=== PATIENT | female | born 1970 | race Two or more races ===

== ENCOUNTER 2025-04-18 16:36 | Emergency (ER) | payer OTHER ==
[~2025-04-18] VITALS: Ht 162.6 cm; Wt 62.9 kg
--- NOTE | 2025-04-18 17:15 | ED.PDOC ---
General HPI Comments This is a 54 year old female presenting to the ED with chief complaint of flank pain. Patient reports that she has been experiencing 10/10 left sided flank pain since yesterday. Patient relays that she has history of kidney stones with her last episode a few months ago. Patient denies any fever, chills, dysuria, hematuria, abdominal pain, or N/V/D. Chief Complaint: Flank Pain Time Seen by MD: 17:13 Reviewed notes: Nurses Notes, Medications, Allergies Allergies: Coded Allergies: NO KNOWN ALLERGIES (Unverified , 04/18/25) Home Meds Active Scripts Tramadol HCl (Tramadol HCl) 50 Mg Tab, 50 MG PO Q12HP PRN for 6 Days, #12 TAB Prov:KAPIL ROTH MD 04/18/25 Information Source: Patient Mode of Arrival: Ambulatory Severity: Moderate Timing: Days Duration: Since onset Prehospital treatment: None Onset: Spontaneous History of: UTI, Kidney stone Location: (L)Flank associated signs and symptoms: Flank Pain Past Medical History PAST MEDICAL HISTORY: Kidney Stones, UTI'S Surgical History: Tonsillectomy KITCHEN CLERK History: Denies all KITCHEN CLERK Hx Family History Family History: Reviewed,noncontributory to illness Social History Smoker: Non-Smoker Alcohol: Denies ETOH Use Drugs: Denies Drug Use Lives In: Home Constitutional: denies: chills, diaphoresis, fatigue, fever, malaise, sweats, weakness, others EENTM: denies: blurred vision, double vision, ear bleeding, ear discharge, ear drainage, ear pain, ear ringing, eye pain, eye redness, hearing loss, mouth pain, mouth swelling, nasal discharge, nose bleeding, nose congestion, nose pain, photophobia, tearing, throat pain, throat swelling, voice changes, others Respiratory: denies: cough, hemoptysis, orthopnea, SOB at rest, shortness of breath, SOB with excertion, stridor, wheezing, others Cardiovascular: denies: chest pain, dizzy spells, diaphoresis, Dyspnea on exertion, edema, irregular heart beat, left arm pain, lightheadedness, palpitations, PND, syncope, others Gastrointestinal: denies: abdomen distended, abdominal pain, blood streaked bowels, constipated, diarrhea, dysphagia, difficulty swallowing, hematemesis, melena, nausea, poor appetite, poor fluid intake, rectal bleeding, rectal pain, vomiting, others Genitourinary: reports: flank pain; denies: abnormal vagina bleeding, burning, dyspareunia, dysuria, frequency, hematuria, incontinence, pain, , vagina discharge, urgency, others Neurological: denies: dizziness, fainting, headache, left sided numbness, left sided weakness, numbness, paresthesia, pre-existing deficit, right sided numbness, right sided weakness, seizure, speech problems, tingling, tremors, weakness, others Musculoskeletal: denies: back pain, gout, joint pain, joint swelling, muscle pain, muscle stiffness, neck pain, others Integumetry: denies: bruises, change in color, change in hair/nails, dryness, laceration, lesions, lumps, rash, wounds, others Allergic/Immunocompromised: denies: Difficulty Healing, Frequent Infections, Hives, Itching, others Hematologic/Lymphatic: denies: anemia, blood clots, easy bleeding, easy bruising, swollen glands, others Endocrine: denies: excessive hunger, excessive sweating, excessive thirst, excessive urination, flushing, intolerance to cold, intolerance to heat, u nexplained weight gain, unexplained weight loss, others Psychiatric: denies: anxiety, bipolar disorder, depression, hopeless, panic disorder, schizophrenia, sleepless, suicidal, others All Other Systems: Reviewed and Negative Physical Exam General Appearance: Mild Distress HEENT: Normal ENT Inspection, Pharynx Normal, TMs Normal Neck: Full Range of Motion, Non-Tender, Normal, Normal Inspection Respiratory: Chest Non-Tender, Lungs Clear, No Accessory Muscle Use, No Respiratory Distress, Normal Breath Sounds Cardiovascular: No Edema, No JVD, No Murmur, No Gallop, Normal Peripheral Pulses, Regular Rate/Rhythm Breast Exam: Deferred Gastrointestinal: No Organomegaly, Non Tender, No Pulsatile Mass, Normal Bowel Sounds, Soft Genitalia: Deferred Pelvic: Deferred Rectal: Deferred Extremities: No calf tenderness, Normal capillary refill, Normal inspection, Normal range of motion, Non-tender, No pedal edema Musculoskeletal : Location: Left Extremity Location: Back Apperance: Tenderness: Mild Neurologic: Alert, almond huller II-XII nml as Tested, No Motor Deficits, Normal Affect, Normal Mood, No Sensory Deficits Cerebellar Function: Normal Reflexes: Normal Skin: Dry, Normal Color, Warm Lymphatic: No Adenopathy Was a procedure done? Was a procedure done?: No Differential Diagnosis Kidney stone (Female): Pyelonephritis, Urolithiasis Urinary Problem (Female): UTI X-Ray, Labs, Meds, VS Vital Signs Date Time Temp Pulse Resp B/P (MAP) Pulse Ox O2 Delivery O2 Flow Rate FiO2 04/18/25 18:03 107 16 100 Room Air 04/18/25 18:03 98.3 107 16 155/93 (113) 100 98.3 04/18/25 16:38 97.5 107 18 159/99 99 97.5 Lab Test 04/18/25 17:12 04/18/25 17:03 Range/Units White Blood Count 8.9 4.4-10.8 10^3/uL Red Blood Count 4.21 4.0-5.20 10^6/uL Hemoglobin 12.7 12.2-16.2 g/dL Hematocrit 37.7 36.0-46.0 % Mean Corpuscular Volume 89.5 80.0-100.0 fL Mean Corpuscular Hemoglobin 30.2 28.0-32.0 pg Mean Corpuscular Hemoglobin Concent 33.7 32.0-36.0 g/dL Red Cell Distribution Width 14.3 11.8-14.3 % Platelet Count 527 H 140-450 10^3/uL Mean Platelet Volume 6.7 L 6.9-10.8 fL Neutrophils (%) (Auto) 53.3 37.0-80.0 % Lymphocytes (%) (Auto) 35.9 10.0-50.0 % Monocytes (%) (Auto) 9.2 0.0-12.0 % Eosinophils (%) (Auto) 0.8 0.0-7.0 % Basophils (%) (Auto) 0.8 0.0-2.0 % Neutrophils # (Auto) 4.7 1.6-8.6 10 ^3/uL Lymphocytes # (Auto) 3.2 0.4-5.4 10 ^3/uL Monocytes # (Auto) 0.8 0-1.3 10 ^3/uL Eosinophils # (Auto) 0.1 0-0.8 10 ^3/uL Basophils # (Auto) 0.1 0-0.2 10 ^3/uL Nucleated Red Blood Cells 0.1 % Sodium Level 144 136-145 mmol/L Potassium Level 3.8 3.5-5.1 mmol/L Chloride Level 106 98-107 mmol/L Carbon Dioxide Level 29 20-31 mmol/L Anion Gap 9 5-15 Blood Urea Nitrogen 12 9-23 mg/dL Creatinine 0.99 0.550-1.02 mg/dL Glomerular Filtration Rate Calc 68 >90 mL/min BUN/Creatinine Ratio 12.1 10.0-20.0 Serum Glucose 101 74-106 mg/dL Calcium Level 10.0 8.7-10.4 mg/dL Urine Color Dark-brown Yellow Urine Clarity Turbid H Clear Urine pH 5.5 5.0-9.0 Urine Specific [place] 1.030 1.001-1.035 Urine Protein Trace H Negative Urine Ketones Negative Negative Urine Blood 2+ H Negative /uL Urine Nitrite 1+ H Negative Urine Bilirubin Negative Negative Urine Urobilinogen 3 H Negative mg/dL Urine Leukocyte Esterase Negative Negative /uL Urine RBC 236 0 - 4 /hpf Urine Microscopic WBC 5 0-5 /HPF Urine Squamous Epithelial Cells Few <5 /hpf Urine Bacteria None seen None Seen /hpf Urine Hyaline Casts Few 0 - 2 /lpf Urine Mucus Few None Seen Urine Glucose Normal Normal mg/dL Current Medications Medications (Trade) Dose Ordered Sig/Padmini Route Start Time Stop Time Status Last Admin Ondansetron HCl (Zofran) 4 mg ONCE ONCE IV 04/18/25 17:15 04/18/25 17:16 DC 04/18/25 18:35 Sodium Chloride 1,000 ml @ 1,000 mls/hr Q1H ONCE IVB 04/18/25 17:15 04/18/25 18:14 DC 04/18/25 18:35 Ketorolac Tromethamine (Toradol Injection) 30 mg ONCE ONCE IV 04/18/25 17:15 04/18/25 17:16 DC 04/18/25 18:36 CT Abd/Pel indicates: 1. [id number] left hydronephrosis with 2 adjacent obstructing calculi in the proximal left ureter. 2. Additional small nonobstructing bilateral renal calculi. 3. Lobulated cyst in the inferior right hepatic lobe. Additional small subcentimeter low-attenuation lesions in the liver, likely small cysts, but too small to characterize. 4. Additional findings as described above. IV Hep-Lock was established The patient was given a 1 L bolus of normal saline The patient was given ketorolac 30 mg IV push The patient has a CBC which is within normal limits The chemistry panel is within normal limits The urine test is negative for any infection Images Reviewed?: Images reviewed and evaluated by me Time of 1ST Reevaluation: 20:13 Reevaluation 1ST: Unchanged Patient Education/Counseling: Diagnosis, Treatment, Prognosis, Need For Follow Up Family Education/Counseling: No Family Present SEPSIS Sepsis Screen Date sepsis recognized/suspect: Apr 18, 2025 Time Sepsis recognized/suspect: 1641 Recent Procedure: No On Antibiotic Therapy: No Respiratory Rate >20: No Heart Rate >90: Yes Temp<36 C (96.8 F) or >38.3 C: No SBP <90 or MAP <65 mmHG: No New Acute Mental Status Change: No Is the patient on CPAP, BIPAP,: No Physician Orders Ct Ab Pel Wo Con-No Oral Or Iv (04/18/25 17:05) Heplock Iv (04/18/25 17:05) Vital Signs Date Time Temp Pulse Resp B/P (MAP) Pulse Ox O2 Delivery O2 Flow Rate FiO2 04/18/25 18:03 107 16 100 Room Air 04/18/25 18:03 98.3 107 16 155/93 (113) 100 98.3 04/18/25 16:38 97.5 107 18 159/99 99 97.5 Laboratory Tests Test 04/18/25 17:12 White Blood Count 8.9 10^3/uL (4.4-10.8) Medications Medications Dose Ordered Sig/Padmini Route Start Time Stop Time Status Last Admin Dose Admin Ketorolac Tromethamine 30 mg ONCE ONCE IV 04/18/25 17:15 04/18/25 17:16 DC 04/18/25 18:36 Ondansetron HCl 4 mg ONCE ONCE IV 04/18/25 17:15 04/18/25 17:16 DC 04/18/25 18:35 Sodium Chloride 1,000 ml @ 1,000 mls/hr Q1H ONCE IVB 04/18/25 17:15 04/18/25 18:14 DC 04/18/25 18:35 Departure 1 Departure Time of Disposition: 20:13 Impression: Primary Impression: Ureterolithiasis Disposition: HOME / SELF CARE / HOMELESS Condition: Fair e-Prescriptions Tramadol HCl (Tramadol HCl) 50 Mg Tab 50 MG PO Q12HP PRN for 6 Days, #12 TAB Prov: KAPIL ROTH MD 04/18/25 Discharged With: Self Critical Care Note Critical Care Time?: No Stability Stability form required: No Heart Score Heart Score: Heart Score Response (Comments) Value History N/A 0 EKG N/A 0 Age N/A 0 Risk Factors N/A 0 Troponin N/A 0 Total 0 I personally scribed for KAPIL ROTH MD ([email or web address]) on 04/18/25 at 17:15. Electronically submitted by Stephan Owens ([email or web address]). I personally scribed for KAPIL ROTH MD ([email or web address]) on 04/18/25 at 18:32. Electronically submitted by Stephan Owens ([email or web address]). KAPIL ROTH MD Apr 18, 2025 17:15
[2025-04-18 17:28] LABS: Hematocrit 37.7 % (36.0-46.0); Hemoglobin 12.7 g/dL (12.2-16.2); Mean Corpuscular Hemoglobin 30.2 pg (28.0-32.0); Mean Corpuscular Volume 89.5 fL (80.0-100.0); Nucleated Red Blood Cells % 0.1 %
[2025-04-18 17:32] LABS: Chloride 106 mmol/L (98-107); Potassium 3.8 mmol/L (3.5-5.1); Sodium 144 mmol/L (136-145)
[2025-04-18 17:33] LABS: Anion Gap 9 (5-15); Calcium 10.0 mg/dL (8.7-10.4); Carbon Dioxide 29 mmol/L (20-31)
[2025-04-18 17:38] LABS: BUN/Creatinine Ratio 12.1 (10.0-20.0); Blood Urea Nitrogen 12 mg/dL (9-23); Glucose 101 mg/dL (74-106)
[2025-04-18 18:04] LABS: Urine Protein, UAD TRACE (Negative)
--- NOTE | 2025-04-18 18:05 | DVH ---
CLINICAL INFORMATION: 54 years old, Female; left flank pain. TECHNIQUE: Axial CT images of the abdomen and pelvis were obtained without IV contrast. Coronal and s agittal reformatted images were obtained, reviewed, and stored. Evaluation of the parenchymal organs is limited without IV contrast. Evaluation of the bowel and mesentery is limited without oral contras t. All CT scans at this medical facility are performed using dose modulation techniques as appropriat e to a performed exam including the following: Automated exposure control was utilized; adjustment of the MA and/or KV according to patient size; and use of iterative reconstruction technique. CTDIvol = 7.16 mGy DLP = 371.6 mGy-cm COMPARISON: US PELVIC on DOS: 05/27/23, US TRANSVAGINAL US NON OB on DOS: 05/26/23 FINDINGS: Lung bases: Lung bases are clear. Liver: Lobulated fluid density structure in the inferior aspect of the right hepatic lobe measuring u p to 4.1 cm, likely cyst. Additional scattered, small subcentimeter low-attenuation lesions are seen in the liver, likely small cysts, but too small to characterize. Biliary: No calcified gallstones or biliary ductal dilatation. Spleen: Unremarkable. Pancreas: Grossly unremarkable in its noncontrast enhanced appearance. Adrenal glands: Unremarkable. No mass. Kidneys: [id number] left hydronephrosis. There are 2 adjacent calculi in the proximal left uret er measuring 3 mm and 4 mm, respectively additional small nonobstructing bilateral renal calculi are seen. Aorta/Vascular: Mild atherosclerotic calcification. No abdominal aortic aneurysm. Lymph nodes: No mass or lymphadenopathy. Bowel/mesentery: No small bowel obstruction. No free air or free fluid. Appendix is visualized and ap pears unremarkable. Moderate stool in the colon. Pelvic organs: Grossly unremarkable. Bladder: Unremarkable. No mass. Abdominal wall: No mass or hernia. Bones: No acute fracture or suspicious intraosseous lesion. IMPRESSION: 1. [id number] left hydronephrosis with 2 adjacent obstructing calculi in the proximal left uret er. 2. Additional small nonobstructing bilateral renal calculi. 3. Lobulated cyst in the inferior right hepatic lobe. Additional small subcentimeter low-attenuation lesions in the liver, likely small cysts, but too small to characterize. 4. Additional findings as described above.
[2025-04-18] MEDS: ONDANSETRON HCL 4 MG/2 ML VIAL IV ONE (18:35)
[2025-04-18] MEDS: SODIUM CHLORIDE 0.9% 1,000 ML IVB ONE (18:35)
[2025-04-18] MEDS: KETOROLAC TROMETH 30 MG/ML 1ML VIAL IV ONE (18:36)
[2025-04-18] MEDS ORDERED: TRAM-626 PO (20:10)
[2025-04-18 20:24] VITALS: BP 168/96; PULSE 94; RESP 17; TEMP 98.1; O2SAT 99
== END 2025-04-18 20:27 | disposition home or self-care (01) ==
LOC: ER 16:39
DX: N13.2 Hydronephrosis with renal and ureteral calculous obstruction (principal); Z90.89 Acquired absence of other organs; Z79.899 Other long term (current) drug therapy
CPT/HCPCS: 36415; 74176; 80048; 81001; 85025; 96361; 96374; 96375; 99285; J1885; J2405; J7030

== ENCOUNTER 2025-04-21 08:30 | Inpatient (IN) | payer OTHER ==
[~2025-04-21] VITALS: Ht 162.6 cm; Wt 98.7 kg
[~2025-04-21 08:30] MED LIST: TRAM-626 PO
--- NOTE | 2025-04-21 09:13 | ED.PDOC ---
General HPI Comments A 54 YEAR OLD FEMALE PRESENTS TO THE ED WITH COMPLAINT OF FLANK PAIN. PT STATES SHE WAS AT [facility] 2X DAYS PRIOR FOR L SIDED FLANK PAIN AND WAS DX WITH OBSTRUCTING L SIDED KIDNEY STONE AND GIVEN PAIN PEDS AND DISCHARGED. PT STATES SINCE, SHE HAS BEEN HAVING INCREASING L SIDED FLANK PAIN RADIATING TO THE LLQ AND CAME TO THE ED FOR EVALUATION.PT IN THE ED, RATES HER PAIN 10/10, CONSTANT, WITH NO ASSOCIATED EXACERBATING OR RELIEVING FACTORS. PATIENT DENIES FEVER, CHILLS, SHORTNESS OF BREATH, CHEST PAIN, , NAUSEA, VOMITING, HEADACHE, OR OTHER COMPLAINTS. NO OTHER SYMPTOMS OR MODIFYING FACTORS AT THIS TIME. PATIENT IS ALERT, ORIENTED X 4, AND HAS STEADY GAIT. Chief Complaint: Flank Pain Time Seen by MD: 09:17 Reviewed notes: Nurses Notes, Medications, Allergies Allergies: Coded Allergies: NO KNOWN ALLERGIES (Unverified , 04/18/25) Home Meds Active Scripts Tramadol HCl (Tramadol HCl) 50 Mg Tab, 50 MG PO Q12HP PRN for 6 Days, #12 TAB Prov:KAPIL ROTH MD 04/18/25 Information Source: Patient Mode of Arrival: Ambulatory Brought in by: SELF Severity: Moderate Timing: Days Duration: Since onset, Days Prehospital treatment: None Onset: Spontaneous History of: Kidney stone Location: Abdomen, (L)Flank associated signs and symptoms: Abdominal Pain, Nausea, Flank Pain Past Medical History PAST MEDICAL HISTORY: Kidney Stones, UTI'S Surgical History: Tonsillectomy HUMAN CAPITAL MANAGER History: Denies all HUMAN CAPITAL MANAGER Hx Family History Family History: Reviewed,noncontributory to illness Social History Smoker: Non-Smoker Alcohol: Denies ETOH Use Drugs: Denies Drug Use Lives In: Home Constitutional: denies: chills, diaphoresis, fatigue, fever, malaise, sweats, weakness, others EENTM: denies: blurred vision, double vision, ear bleeding, ear discharge, ear drainage, ear pain, ear ringing, eye pain, eye redness, hearing loss, mouth pain, mouth swelling, nasal discharge, nose bleeding, nose congestion, nose pain, photophobia, tearing, throat pain, throat swelling, voice changes, others Respiratory: denies: cough, hemoptysis, orthopnea, SOB at rest, shortness of breath, SOB with excertion, stridor, wheezing, others Cardiovascular: denies: chest pain, dizzy spells, diaphoresis, Dyspnea on exertion, edema, irregular heart beat, left arm pain, lightheadedness, palpitations, PND, syncope, others Gastrointestinal: reports: abdominal pain; denies: abdomen distended, blood streaked bowels, constipated, diarrhea, dysphagia, difficulty swallowing, hematemesis, melena, nausea, poor appetite, poor fluid intake, rectal bleeding, rectal pain, vomiting, others Genitourinary: reports: flank pain; denies: abnormal vagina bleeding, burning, dyspareunia, dysuria, frequency, hematuria, incontinence, pain, , vagina discharge, urgency, others Musculoskeletal: denies: back pain, gout, joint pain, joint swelling, muscle pain, muscle stiffness, neck pain, others Integumetry: denies: bruises, change in color, change in hair/nails, dryness, laceration, lesions, lumps, rash, wounds, others Allergic/Immunocompromised: denies: Difficulty Healing, Frequent Infections, Hives, Itching, others Hematologic/Lymphatic: denies: anemia, blood clots, easy bleeding, easy bruising, swollen glands, others Endocrine: denies: excessive hunger, excessive sweating, excessive thirst, excessive urination, flushing, intolerance to cold, intolerance to heat, unexplained weight gain, unexplained weight loss, others Psychiatric: denies: anxiety, bipolar disorder, depression, hopeless, panic disorder, schizophrenia, sleepless, suicidal, others All Other Systems: Reviewed and Negative Physical Exam General Appearance: Moderate Distress, Normal HEENT: Normal ENT Inspection, PERRL/EOMI, Pharynx Normal, TMs Normal Neck: Full Range of Motion, Non-Tender, Normal, Normal Inspection Respiratory: Chest Non-Tender, Lungs Clear, No Accessory Muscle Use, No Respiratory Distress, Normal Breath Sounds Cardiovascular: No Edema, No JVD, No Murmur, No Gallop, Normal Peripheral Pulses, Regular Rate/Rhythm Breast Exam: Deferred Gastrointestinal: LLQ, No Organomegaly, Normal Bowel Sounds, Soft, Tenderness (WITH GUARDING ON LEFT LOWER ABD AND FLAND, +CVA TENDERNESS ON LEFT FLANK. ) Genitalia: Deferred Pelvic: Normal External Exam Rectal: Deferred Extremities: No calf tenderness, Normal capillary refill, Normal inspection, Normal range of motion, Non-tender, No pedal edema Musculoskeletal : Apperance: Normal Neurologic: Alert, tax assistant II-XII nml as Tested, No Motor Deficits, Normal Affect, Normal Mood, No Sensory Deficits Cerebellar Function: Normal Reflexes: Normal Skin: Dry, Normal Color, Warm Peripheral Pulses: 2+ carotid (R), 2+ carotid (L) Lymphatic: No Adenopathy Was a procedure done? Was a procedure done?: No Differential Diagnosis Kidney stone (Female): DJD, Musculoskeletal pain, Pyelonephritis, Strain, Other (HYDRONEPHROSIS) Urinary Problem (Female): Pyelonephritis, Urolithiasis, UTI X-Ray, Labs, Meds, VS Vital Signs Date Time Temp Pulse Resp B/P (MAP) Pulse Ox O2 Delivery O2 Flow Rate FiO2 04/21/25 10:10 97 Room Air* 0 21 04/21/25 10:07 79 17 98 Room Air* 0 21 04/21/25 10:00 79 17 163/88 (113) 96 04/21/25 09:00 98.7 77 17 165/87 (113) 96 98.7 04/21/25 08:36 97.7 91 18 161/95 98 97.7 Lab Test 04/21/25 09:41 04/21/25 09:05 Range/Units Urine Color Yellow Yellow Urine Clarity Clear Clear Urine pH 6.0 5.0-9.0 Urine Specific [place] 1.023 1.001-1.035 Urine Protein Negative Negative Urine Ketones Negative Negative Urine Blood Trace H Negative /uL Urine Nitrite Negative Negative Urine Bilirubin Negative Negative Urine Urobilinogen Normal Negative mg/dL Urine Leukocyte Esterase Negative Negative /uL Urine RBC 17 0 - 4 /hpf Urine Microscopic WBC 1 0-5 /HPF Urine Squamous Epithelial Cells Few <5 /hpf Urine Bacteria None seen None Seen /hpf Urine Glucose Normal Normal mg/dL White Blood Count 12.4 #H 4.4-10.8 10^3/uL Red Blood Count 4.26 4.0-5.20 10^6/uL Hemoglobin 12.6 12.2-16.2 g/dL Hematocrit 38.1 36.0-46.0 % Mean Corpuscular Volume 89.3 80.0-100.0 fL Mean Corpuscular Hemoglobin 29.6 28.0-32.0 pg Mean Corpuscular Hemoglobin Concent 33.2 32.0-36.0 g/dL Red Cell Distribution Width 14.3 11.8-14.3 % Platelet Count 502 H 140-450 10^3/uL Mean Platelet Volume 6.8 L 6.9-10.8 fL Neutrophils (%) (Auto) 74.7 37.0-80.0 % Lymphocytes (%) (Auto) 15.7 10.0-50.0 % Monocytes (%) (Auto) 7.7 0.0-12.0 % Eosinophils (%) (Auto) 1.4 0.0-7.0 % Basophils (%) (Auto) 0.5 0.0-2.0 % Neutrophils # (Auto) 9.2 H 1.6-8.6 10 ^3/uL Lymphocytes # (Auto) 1.9 0.4-5.4 10 ^3/uL Monocytes # (Auto) 1.0 0-1.3 10 ^3/uL Eosinophils # (Auto) 0.2 0-0.8 10 ^3/uL Basophils # (Auto) 0.1 0-0.2 10 ^3/uL Nucleated Red Blood Cells 0.1 % Sodium Level 146 H 136-145 mmol/L Potassium Level 3.2 L 3.5-5.1 mmol/L Chloride Level 106 98-107 mmol/L Carbon Dioxide Level 28 20-31 mmol/L Anion Gap 12 5-15 Blood Urea Nitrogen 11 9-23 mg/dL Creatinine 1.05 H 0.550-1.02 mg/dL Glomerular Filtration Rate Calc 63 >90 mL/min BUN/Creatinine Ratio 10.5 10.0-20.0 Serum Glucose 119 H 74-106 mg/dL Calcium Level 9.6 8.7-10.4 mg/dL Total Bilirubin 0.4 0.2-1.0 mg/dL Aspartate Amino Transferase (AST) 20 13-40 U/L Alanine Aminotransferase (ALT) 16 7-40 U/L Alkaline Phosphatase 76 46-116 U/L Total Protein 7.6 5.7-8.2 g/dL Albumin 4.7 3.2-4.8 g/dL Current Medications Medications (Trade) Dose Ordered Sig/Padmini Route Start Time Stop Time Status Last Admin Ondansetron HCl (Zofran) 4 mg ONCE ONCE IV 04/21/25 09:00 04/21/25 09:01 DC 04/21/25 09:47 Ketorolac Tromethamine (Toradol Injection) 30 mg ONCE ONCE IV 04/21/25 09:00 04/21/25 09:01 DC 04/21/25 09:48 Sodium Chloride 1,000 ml @ 1,000 mls/hr Q1H ONCE IV 04/21/25 09:00 04/21/25 09:59 DC 04/21/25 09:48 Tamsulosin HCl (Flomax) 0.8 mg ONCE ONCE PO 04/21/25 09:30 04/21/25 09:31 DC 04/21/25 09:47 [place] [id number] Ph: [phone] DIAGNOSTIC IMAGING Diagnostic Imaging Report : [id number] Signed PATIENT: SANDRA ESTEST: [id number] UNIT: [id number] : 1970 LOC: ER ROOM / BED: / AGE / SEX: 54 / F ADM STATUS: REG ER SERVICE [id number] ORDERING PHYSICIAN: KAPIL ROTH MD PROCEDURE(s): ABPL - CT AB PEL WO CON-NO ORAL OR IV REASON: left flank pain ORDER NUMBER(s): [id number], ACCESSION NUMBER(s): [id number] CLINICAL INFORMATION: 54 years old, Female; left flank pain. TECHNIQUE: Axial CT images of the abdomen and pelvis were obtained without IV contrast. Coronal and sagittal reformatted images were obtained, reviewed, and stored. Evaluation of the parenchymal organs is limited without IV contrast. Evaluation of the bowel and mesentery is limited without oral contrast. All CT scans at this medical facility are performed using dose modulation techniques as appropriate to a performed exam including the following: Automated exposure control was utilized; adjustment of the MA and/or KV according to patient size; and use of iterative reconstruction technique. CTDIvol = 7.16 mGy DLP = 371.6 mGy-cm COMPARISON: US PELVIC on DOS: 05/27/23, US TRANSVAGINAL US NON OB on DOS: 05/26/23 FINDINGS: Lung bases: Lung bases are clear. Liver: Lobulated fluid density structure in the inferior aspect of the right hepatic lobe measuring up to 4.1 cm, likely cyst. Additional scattered, small subcentimeter low-attenuation lesions are seen in the liver, likely small cysts, but too small to characterize. Biliary: No calcified gallstones or biliary ductal dilatation. Spleen: Unremarkable. Pancreas: Grossly unremarkable in its noncontrast enhanced appearance. Adrenal glands: Unremarkable. No mass. Kidneys: [id number]-lycxnbva left hydronephrosis. There are 2 adjacent calculi in the proximal left ureter measuring 3 mm and 4 mm, respectively additional small nonobstructing bilateral renal calculi are seen. Aorta/Vascular: Mild atherosclerotic calcification. No abdominal aortic ane urysm. Lymph nodes: No mass or lymphadenopathy. Bowel/mesentery: No small bowel obstruction. No free air or free fluid. Appendix is visualized and appears unremarkable. Moderate stool in the colon. Pelvic organs: Grossly unremarkable. Bladder: Unremarkable. No mass. Abdominal wall: No mass or hernia. Bones: No acute fracture or suspicious intraosseous lesion. IMPRESSION: 1. [id number] left hydronephrosis with 2 adjacent obstructing calculi in the proximal left ureter. 2. Additional small nonobstructing bilateral renal calculi. 3. Lobulated cyst in the inferior right hepatic lobe. Additional small subcentimeter low-attenuation lesions in the liver, likely small cysts, but too small to characterize. 4. Additional findings as described above. ATED BY: DEYVI TOM DO DICTATED DATE/TIME: 04/18/251801 SIGNED BY: DEYVI TOM DO SIGNED DATE/TIME: 04/18/251801 CC: X-Ray, Labs, Meds, VS Comment COURSE: EXTERNAL MEDICAL RECORDS REVIEWED: [NONE] INDEPENDENT HISTORIANS: [NONE] SOCIAL DETERMINANTS OF HEALTH: [NONE] LABS ORDERED: CBC,CMP, UA, URINE CULTURE REVIEWED AND INTERPRETED RESULTS: MILD ELEVATED WBC IMAGING ORDERED: NONE TREATMENTS ORDERED: ZOFRAN 4 MG, TORADOL 30 MG, 1L IV FLUIDS AND FLOMAX 0.8MG PO PROCEDURES PERFORMED: NONE CRITICAL CARE TIME: NONE I HAVE DISCUSSED THE PATIENT WITH THE ATTENDING PHYSICIAN DR. RODRIGUEZ AND HE AGREES WITH THE PATIENT'S PLAN OF CARE AND DISPOSITION. PT RESENTS LEFT SIDE FLANK PAIN WITH NAUSEA AND CT-ABD/PELVIC SHOWS TWO DAY AGO HYDRONEPHROSIS AND OBSTRUCTED KIDNEY STONE. THE PATIENT WAS DISCHARGED HOME WITH PAIN MEDICATION WITHOUT IMPROVEMENT. PT STILL C/O 10/10 LEFT FLANK PAIN WITH NAUSEA AND SHE FAILED OUTPATIENT TREATMENT. THE PATIENT WILL BE ADMITTED FOR OBSTRUCTING KIDNEY STONE AND PAIN CONTROL MANAGEMENT. Time of 1ST Reevaluation: 10:00 Reevaluation 1ST: Unchanged Patient Education/Counseling: Diagnosis, Treatment Family Education/Counseling: Diagnosis, Treatment SEPSIS Sepsis Screen Date sepsis recognized/suspect: Apr 21, 2025 Time Sepsis recognized/suspect: 08 Recent Procedure: No On Antibiotic Therapy: No Respiratory Rate >20: No Heart Rate >90: No Temp<36 C (96.8 F) or >38.3 C: No SBP <90 or MAP <65 mmHG: No New Acute Mental Status Change: No Is the patient on CPAP, BIPAP,: No Physician Orders Heplock Iv (04/21/25 08:56) Urine Bacterial Culture (04/21/25 08:56) Vital Signs Date Time Temp Pulse Resp B/P (MAP) Pulse Ox O2 Delivery O2 Flow Rate FiO2 04/21/25 10:10 97 Room Air* 0 21 04/21/25 10:07 79 17 98 Room Air* 0 21 04/21/25 10:00 79 17 163/88 (113) 96 04/21/25 09:00 98.7 77 17 165/87 (113) 96 98.7 04/21/25 08:36 97.7 91 18 161/95 98 97.7 Laboratory Tests Test 04/21/25 09:05 White Blood Count 12.4 10^3/uL (4.4-10.8) #H Medications Medications Dose Ordered Sig/Padmini Route Start Time Stop Time Status Last Admin Dose Admin Ketorolac Tromethamine 30 mg ONCE ONCE IV 04/21/25 09:00 04/21/25 09:01 DC 04/21/25 09:48 Ondansetron HCl 4 mg ONCE ONCE IV 04/21/25 09:00 04/21/25 09:01 DC 04/21/25 09:47 Sodium Chloride 1,000 ml @ 1,000 mls/hr Q1H ONCE IV 04/21/25 09:00 04/21/25 09:59 DC 04/21/25 09:48 Tamsulosin HCl 0.8 mg ONCE ONCE PO 04/21/25 09:30 04/21/25 09:31 DC 04/21/25 09:47 Departure 1 Departure Time of Disposition: 10:00 Impression: Primary Impression: Hydronephrosis with renal calculous obstruction Additional Impressions: Bilateral renal stones Failure of outpatient treatment Disposition: ADMITTED INPATIENT Condition: Serious Critical Care Note Critical Care Time?: No Stability Stability form required: Yes Unstable for transfer: Requires medication, ED Physician Assesment, Possible rapid decline Heart Score Heart Score: Heart Score Response (Comments) Value History N/A 0 EKG N/A 0 Age N/A 0 Risk Factors N/A 0 Troponin N/A 0 Total 0 I personally scribed for SUSAN CAMPBELL ([email or web address]) on 04/21/25 at 09:13. Electronically submitted by Heidy Hackett ([employer]). I personally scribed for SUSAN CAMPBELL ([email or web address]) on 04/21/25 at 09:21. Electronically submitted by Heidy Hackett ([employer]). I personally scribed for SUSAN CAMPBLEL ([email or web address]) on 04/21/25 at 09:39. Electronically submitted by Heidy Hackett ([employer]). I personally scribed for SUSAN CAMPBELL ([email or web address]) on 04/21/25 at 09:41. Electronically submitted by Heidy Hackett ([employer]). SUSAN CAMPBELL Apr 21, 2025 09:13
[2025-04-21 09:32] LABS: Hematocrit 38.1 % (36.0-46.0); Hemoglobin 12.6 g/dL (12.2-16.2); Mean Corpuscular Hemoglobin 29.6 pg (28.0-32.0); Mean Corpuscular Volume 89.3 fL (80.0-100.0); Nucleated Red Blood Cells % 0.1 %
[2025-04-21 09:47] LABS: Alanine Aminotransferase 16 U/L (7-40); Albumin 4.7 g/dL (3.2-4.8); Alkaline Phosphatase 76 U/L (46-116); Anion Gap 12 (5-15); BUN/Creatinine Ratio 10.5 (10.0-20.0); Blood Urea Nitrogen 11 mg/dL (9-23); Calcium 9.6 mg/dL (8.7-10.4); Carbon Dioxide 28 mmol/L (20-31); Chloride 106 mmol/L (98-107); Total Protein 7.6 g/dL (5.7-8.2)
[2025-04-21] MEDS: TAMSULOSIN HYDROCHLORIDE 0.4 MG CAP PO ONE (09:47)
[2025-04-21] MEDS: ONDANSETRON HCL 4 MG/2 ML VIAL IV ONE (09:47)
[2025-04-21 09:48] LABS: Bilirubin, Total 0.4 mg/dL (0.2-1.0); Glucose 119 mg/dL (74-106); Potassium 3.2 mmol/L (3.5-5.1); Sodium 146 mmol/L (136-145)
[2025-04-21] MEDS: KETOROLAC TROMETH 30 MG/ML 1ML VIAL IV ONE (09:48)
[2025-04-21] MEDS: SODIUM CHLORIDE 0.9% 1,000 ML IV ONE (09:48)
[2025-04-21 10:07] VITALS: PULSE 79; RESP 17; O2SAT 98
[2025-04-21 10:17] LABS: Urine Protein, UAD Negative (Negative)
[2025-04-21] MEDS: POTASSIUM CHL 20 Meq TABLET PO ONE (11:11)
[2025-04-21] MEDS ORDERED: ACETAMINOPHEN 325 MG TAB PO PRN (14:45)
[2025-04-21] MEDS ORDERED: DOCUSATE SOD 100 MG CAP PO PRN (14:45)
--- NOTE | 2025-04-21 15:36 | DVHHP2 ---
History of Present Illness Reason for Visit: Left flank pain History of Present Illness Lolis Rodriguez is a 54-year-old female with past medical history chronic back pain, who came to the hospital for left flank pain. She states her pain began Saturday04/17/2025. She came here on 04/18/2025, was diagnosed with ureterolithiasis and sent home. Her pain continued to worsen with associated nausea prompting her to come back to the hospital. Musculoskeletal: Chronic low back pain Past Surgical History: Other (tummy tuck), Tonsillectomy Smoke: No ALCOHOL: none Drugs: None Lives: with Family Domestic Violence: Neg Review of Systems Constitutional: No: Fever, Chills, Sweats, Weakness, Malaise, Other Eyes: No: Pain, Vision change, Conjunctivae inflammation, Eyelid inflammation, Other, Redness ENT: No: Ear pain, Ear discharge, Nose pain, Nose discharge, Nose congestion, Mouth pain, Mouth swelling, Throat pain, Throat swelling, Other Respiratory: No: Cough, Dry, Shortness of breath, SOB with excertion, Wheezing, Hemoptysis, Pleuritic Pain, Sputum, Wheezing, Other Cardiovascular: No: Chest Pain, Palpitations, Orthopnea, Paroxysmal Noc. Dyspnea, Edema, Lt Headedness, Other Gastrointestinal: Nausea, Abdominal Pain (pelvic pain); No: Vomiting, Diarrhea, Constipation, Melena, Hematochezia, Other Genitourinary: No Dysuria, No Frequency, No Incontinence, No Hematuria, No Retention, No Other Musculoskeletal: back pain (left flank); No: other, neck pain, shoulder pain, arm pain, hand pain, leg pain, foot pain Skin: No: Rash, Lesions, Jaundice, Bruising, Other Neurological: No: Weakness, Numbness, Incoordination, Change in speech, Confusion, Seizures, Other Allergies: Coded Allergies: NO KNOWN ALLERGIES (Unverified , 04/18/25) Exam Vital Signs Vital Signs Date Time Temp Pulse Resp B/P (MAP) Pulse Ox O2 Delivery O2 Flow Rate FiO2 04/21/25 14:00 81 17 144/90 (108) 96 04/21/25 12:00 98.6 98.6 04/21/25 10:10 Room Air* 0 21 General Appearance: Alert, Oriented X3, Cooperative, mild distress HEENT: Atraumatic, PERRLA, Mucous membr. moist/pink Respiratory: Clear to auscultation, Normal air movement Cardiovascular: Regular rate, Normal S1, Normal S2, No murmurs Abdominal: Normal bowel sounds, Soft, Other (left flank pain, pelvic tendern ess) Extremities: No clubbing, No cyanosis, No edema, Normal pulses, No tenderness/swelling Skin: No rashes, No breakdown, No significant lesion Neuro: Normal gait, Normal speech, Strength at 5/5 X4 ext, Normal tone Psych/Mental Status: Mental status NL, Mood NL Labs/Xrays Labs Test 04/21/25 09:41 04/21/25 09:05 Range/Units Urine Color Yellow Yellow Urine Clarity Clear Clear Urine pH 6.0 5.0-9.0 Urine Specific [place] 1.023 1.001-1.035 Urine Protein Negative Negative Urine Ketones Negative Negative Urine Blood Trace H Negative /uL Urine Nitrite Negative Negative Urine Bilirubin Negative Negative Urine Urobilinogen Normal Negative mg/dL Urine Leukocyte Esterase Negative Negative /uL Urine RBC 17 0 - 4 /hpf Urine Microscopic WBC 1 0-5 /HPF Urine Squamous Epithelial Cells Few <5 /hpf Urine Bacteria None seen None Seen /hpf Urine Glucose Normal Normal mg/dL White Blood Count 12.4 #H 4.4-10.8 10^3/uL Red Blood Count 4.26 4.0-5.20 10^6/uL Hemoglobin 12.6 12.2-16.2 g/dL Hematocrit 38.1 36.0-46.0 % Mean Corpuscular Volume 89.3 80.0-100.0 fL Mean Corpuscular Hemoglobin 29.6 28.0-32.0 pg Mean Corpuscular Hemoglobin Concent 33.2 32.0-36.0 g/dL Red Cell Distribution Width 14.3 11.8-14.3 % Platelet Count 502 H 140-450 10^3/uL Mean Platelet Volume 6.8 L 6.9-10.8 fL Neutrophils (%) (Auto) 74.7 37.0-80.0 % Lymphocytes (%) (Auto) 15.7 10.0-50.0 % Monocytes (%) (Auto) 7.7 0.0-12.0 % Eosinophils (%) (Auto) 1.4 0.0-7.0 % Basophils (%) (Auto) 0.5 0.0-2.0 % Neutrophils # (Auto) 9.2 H 1.6-8.6 10 ^3/uL Lymphocytes # (Auto) 1.9 0.4-5.4 10 ^3/uL Monocytes # (Auto) 1.0 0-1.3 10 ^3/uL Eosinophils # (Auto) 0.2 0-0.8 10 ^3/uL Basophils # (Auto) 0.1 0-0.2 10 ^3/uL Nucleated Red Blood Cells 0.1 % Sodium Level 146 H 136-145 mmol/L Potassium Level 3.2 L 3.5-5.1 mmol/L Chloride Level 106 98-107 mmol/L Carbon Dioxide Level 28 20-31 mmol/L Anion Gap 12 5-15 Blood Urea Nitrogen 11 9-23 mg/dL Creatinine 1.05 H 0.550-1.02 mg/dL Glomerular Filtration Rate Calc 63 >90 mL/min BUN/Creatinine Ratio 10.5 10.0-20.0 Serum Glucose 119 H 74-106 mg/dL Calcium Level 9.6 8.7-10.4 mg/dL Total Bilirubin 0.4 0.2-1.0 mg/dL Aspartate Amino Transferase (AST) 20 13-40 U/L Alanine Aminotransferase (ALT) 16 7-40 U/L Alkaline Phosphatase 76 46-116 U/L Total Protein 7.6 5.7-8.2 g/dL Albumin 4.7 3.2-4.8 g/dL CT was completed on 04/18/2025 SEPSIS Sepsis Screen Date sepsis recognized/suspect: Apr 21, 2025 Time Sepsis recognized/suspect: 1010 Recent Procedure: No On Antibiotic Therapy: No Respiratory Rate >20: No Heart Rate >90: No Temp<36 C (96.8 F) or >38.3 C: No SBP <90 or MAP <65 mmHG: No New Acute Mental Status Change: No Is the patient on CPAP, BIPAP,: No Physician Orders Heplock Iv (04/21/25 08:56) Urine Bacterial Culture (04/21/25 08:56) * Urology Consult (04/21/25 13:56) Admit (04/21/25 14:37) Code Status (04/21/25 14:37) 0.9% Ns 1000 Ml (04/21/25 14:45) Hydrocodone-Acet 5/325mg Tab ([place] 32 (04/21/25 14:45) Ondansetron Hcl (Zofran) (04/21/25 14:45) Docusate Sodium Capsule (Colace Capsule) (04/21/25 14:45) Complete Blood Count (04/22/25 04:00) Comprehensive Metabolic Panel (04/22/25 04:00) Npo (Nothing By Mouth) Diet (04/21/25 Dinner) Condition: Serious (04/21/25 14:37) Acetaminophen Tablet (Tylenol Tablet) (04/21/25 14:45) Potassium (04/21/25 16:00) Magnesium (04/21/25 16:00) Vital Signs Date Time Temp Pulse Resp B/P (MAP) Pulse Ox O2 Delivery O2 Flow Rate FiO2 04/21/25 14:00 81 17 144/90 (108) 96 04/21/25 12:00 98.6 91 17 160/95 (116) 96 98.6 04/21/25 10:10 97 Room Air* 0 21 04/21/25 10:07 79 17 98 Room Air* 0 21 04/21/25 10:00 79 17 163/88 (113) 96 04/21/25 09:00 98.7 77 17 165/87 (113) 96 98.7 04/21/25 08:36 97.7 91 18 161/95 98 97.7 Laboratory Tests Test 04/21/25 09:05 White Blood Count 12.4 10^3/uL (4.4-10.8) #H Medications Medications Dose Ordered Sig/Padmini Route Start Time Stop Time Status Last Admin Dose Admin Ketorolac Tromethamine 30 mg ONCE ONCE IV 04/21/25 09:00 04/21/25 09:01 DC 04/21/25 09:48 30 MG Ondansetron HCl 4 mg ONCE ONCE IV 04/21/25 09:00 04/21/25 09:01 DC 04/21/25 09:47 4 MG Potassium Chloride 20 meq ONCE ONCE PO 04/21/25 11:00 04/21/25 11:01 DC 04/21/25 11:11 20 MEQ Sodium Chloride 1,000 ml @ 1,000 mls/hr Q1H ONCE IV 04/21/25 09:00 04/21/25 09:59 DC 04/21/25 09:48 1,000 MLS/HR Tamsulosin HCl 0.8 mg ONCE ONCE PO 04/21/25 09:30 04/21/25 09:31 DC 04/21/25 09:47 0.8 MG Assessment/Plan Assessment/Plan Assessment: Hydronephrosis with renal calculous obstruction, Leukocytosis, Hypokalemia, Plan: Admit to Med-Surg, Urology consult, IV hydration, IV antibiotics, Flomax, Manage/Monitor electrolytes, Plan discussed with: Patient, Spouse My Orders Orders - ISRAEL GONZALEZ Procedure Category Date Status Time Admit ADMIT 04/21/25 Verified 14:37 Code Status CODE 04/21/25 Verified 14:37 0.9% Ns 1000 Ml PHA 04/21/25 Verified 14:45 Hydrocodone-Acet PHA 04/21/25 Verified 5/325mg Tab ([place] 14:45 Ondansetron Hcl PHA 04/21/25 Verified (Zofran) 14:45 Docusate Sodium PHA 04/21/25 Verified Capsule (Colace 14:45 Complete Blood Count LAB 04/22/25 Verified 04:00 Comprehensive LAB 04/22/25 Verified Metabolic Panel 04:00 Npo (Nothing By DIET 04/21/25 Verified Mouth) Diet Dinner Condition: Serious DAIANA 04/21/25 Verified 14:37 Acetaminophen Tablet PHA 04/21/25 Verified (Tylenol Tablet) 14:45 Potassium LAB 04/21/25 Verified 16:00 Magnesium LAB 04/21/25 Verified 16:00 Date of Service: Apr 21, 2025 Billing Provider: ISRAEL GONZALEZ Common Visit Codes: [id number] INP/OBS CARE (MOD) ISRAEL GONZALEZ Apr 21, 2025 15:36
[2025-04-21] MEDS: ONDANSETRON HCL 4 MG/2 ML VIAL IV PRN (16:06)
[2025-04-21] MEDS: KETOROLAC TROMETH 30 MG/ML 1ML VIAL IV PRN (16:06)
[2025-04-21] MEDS: SOD CHL 0.45% 1,000 ML IV SCH (16:06)
[2025-04-21 17:20] VITALS: BP_SYST 124; BP_SYST 126; BP_DIAS 68; BP_DIAS 79; PULSE 88; PULSE 91; RESP 16; RESP 18; TEMP 98.1; O2SAT 100; O2SAT 98
[2025-04-21 17:25] LABS: Potassium 5.1 mmol/L (3.5-5.1)
[2025-04-21 17:32] LABS: Magnesium 1.9 mg/dL (1.6-2.6)
[2025-04-21] MEDS ORDERED: TOPI50TA32 PO (19:26)
[2025-04-21] MEDS ORDERED: HYDR-4798 PO (19:26)
[2025-04-21 20:00] VITALS: PULSE 100; RESP 20; O2SAT 98
--- NOTE | 2025-04-21 20:01 | DVH ---
CLINICAL HISTORY: hydronephrosis, check ureteral jets TECHNIQUE: Complete ultrasound exam of the kidneys and bladder was performed. COMPARISON: US PELVIC on DOS: 05/27/23 FINDINGS: The right kidney has normal echogenicity and measures 10.3 cm. There are small nonobstructing renal calculi. There is no hydronephrosis. The left kidney has normal echogenicity and measures 12.6 cm. There are small nonobstructing renal calculi.. There is mild hydronephrosis. The bladder is grossly unremarkable. The prevoid bladder volume is 352 mL and the postvoid bladder volume is 3 mL. Bilateral ureteral jets are noted within the bladder. IMPRESSION: Mild left hydronephrosis. Bilateral nonobstructing renal calculi.
[2025-04-21 21:00] VITALS: BP 150/84; PULSE 100; RESP 20; TEMP 98.1; O2SAT 98
[2025-04-22] VITALS (8 sets, daily range): BP systolic 124–139; BP diastolic 77–89; PULSE 83–96; RESP 17–20; TEMP 97.7–98.4; O2SAT 96–99
[2025-04-22] MEDS: HYDROcodone-ACET 5/325MG TAB PO PRN (06:07)
[2025-04-22 06:23] LABS: Hematocrit 33.2 % (36.0-46.0); Hemoglobin 11.1 g/dL (12.2-16.2); Mean Corpuscular Hemoglobin 29.9 pg (28.0-32.0); Mean Corpuscular Volume 89.1 fL (80.0-100.0); Nucleated Red Blood Cells % 0.0 %
[2025-04-22 06:42] LABS: Alanine Aminotransferase 12 U/L (7-40); Albumin 3.8 g/dL (3.2-4.8); Alkaline Phosphatase 65 U/L (46-116); Anion Gap 9 (5-15); BUN/Creatinine Ratio 10.8 (10.0-20.0); Blood Urea Nitrogen 14 mg/dL (9-23); Calcium 8.9 mg/dL (8.7-10.4); Carbon Dioxide 26 mmol/L (20-31); Potassium 4.3 mmol/L (3.5-5.1); Sodium 144 mmol/L (136-145); Total Protein 6.1 g/dL (5.7-8.2)
[2025-04-22 06:43] LABS: Bilirubin, Total 0.3 mg/dL (0.2-1.0); Chloride 109 mmol/L (98-107); Glucose 124 mg/dL (74-106)
--- NOTE | 2025-04-22 11:14 | DVHINCON2 ---
Date of service: Apr 22, 2025 Referring Physician Hospitalist Reason for Consultation proximal stone History of Present Illness History Source: Patient, RN Notes, MD Notes, Old Records Exam Limitations: No limitations HPI 54 yo female with left flank pain found to have left proximal stones 3 and for 4 mm and mild to moderate hydro. Home Meds Active Scripts Tramadol HCl (Tramadol HCl) 50 Mg Tab, 50 MG PO Q12HP PRN for 6 Days, #12 TAB Prov:KAPIL ROTH MD 04/18/25 Reported Medications Topiramate (Topamax) 50 Mg Tab, 1 TAB PO BID, #60 TAB 1 Refill 04/21/25 Hydrocodone-Acetaminophen (Hydrocodone Bitartrate/AC 10-325 mg) 1 Tab Tab, 1 TAB PO Q4HP for PAIN, TAB 04/21/25 Review of Systems Gastrointestinal: Abdominal Pain Genitourinary: Pain H&P Exam Vital Signs Vital Signs Date Time Temp Pulse Resp B/P (MAP) Pulse Ox O2 Delivery O2 Flow Rate FiO2 04/22/25 08:57 98.3 90 18 124/83 (97) 97 98.3 04/21/25 20:00 Room Air* 0 21 General Appeara: Well developed, Well nourished, Normal Appearance Neuro/Mental St: Alert, Oriented Appearance: Appropriate appearance, Appropriate insight Eye contact/ Speech: Cooperative, Good eye contact, Normal speech Skin Exam: Normal inspection, Normal color, Warm/dry Labs/Xrays [place] [address] Ph: [phone] DIAGNOSTIC IMAGING Diagnostic Imaging Report : [id number] Signed PATIENT: SANDRA ESTEST: [id number] UNIT: [id number] : 1970 LOC: [facility] ROOM / BED: [facility] / A AGE / SEX: 54 / F ADM STATUS: ADM IN SERVICE 12 ORDERING PHYSICIAN: ABRAHAN MARTINEZ NP PROCEDURE(s): KIDUS - KIDNEY REASON: hydronephrosis, check ureteral jets ORDER NUMBER(s): [id number], ACCESSION NUMBER(s): [id number] CLINICAL HISTORY: hydronephrosis, check ureteral jets TECHNIQUE: Complete ultrasound exam of the kidneys and bladder was performed. COMPARISON: US PELVIC on DOS: 05/27/23 FINDINGS: The right kidney has normal echogenicity and measures 10.3 cm. There are small nonobstructing renal calculi. There is no hydronephrosis. The left kidney has normal echogenicity and measures 12.6 cm. There are small nonobstructing renal calculi.. There is mild hydronephrosis. The bladder is grossly unremarkable. The prevoid bladder volume is 352 mL and the postvoid bladder volume is 3 mL. Bilateral ureteral jets are noted within the bladder. IMPRESSION: Mild left hydronephrosis. Bilateral nonobstructing renal calculi. ATED BY: TRE HECK MD DICTATED DATE/TIME: 04/21/251958 SIGNED BY: TRE HECK MD SIGNED DATE/TIME: 04/21/251958 CC: Labs Test 04/22/25 06:00 04/21/25 17:01 04/21/25 09:41 Range/Units White Blood Count 9.5 4.4-10.8 10^3/uL Red Blood Count 3.73 L 4.0-5.20 10^6/uL Hemoglobin 11.1 L 12.2-16.2 g/dL Hematocrit 33.2 #L 36.0-46.0 % Mean Corpuscular Volume 89.1 80.0-100.0 fL Mean Corpuscular Hemoglobin 29.9 28.0-32.0 pg Mean Corpuscular Hemoglobin Concent 33.6 32.0-36.0 g/dL Red Cell Distribution Width 14.2 11.8-14.3 % Platelet Count 394 140-450 10^3/uL Mean Platelet Volume 6.4 L 6.9-10.8 fL Neutrophils (%) (Auto) 62.3 37.0-80.0 % Lymphocytes (%) (Auto) 25.2 10.0-50.0 % Monocytes (%) (Auto) 8.9 0.0-12.0 % Eosinophils (%) (Auto) 3.0 0.0-7.0 % Basophils (%) (Auto) 0.6 0.0-2.0 % Neutrophils # (Auto) 5.9 1.6-8.6 10 ^3/uL Lymphocytes # (Auto) 2.4 0.4-5.4 10 ^3/uL Monocytes # (Auto) 0.8 0-1.3 10 ^3/uL Eosinophils # (Auto) 0.3 0-0.8 10 ^3/uL Basophils # (Auto) 0.1 0-0.2 10 ^3/uL Nucleated Red Blood Cells 0.0 % Sodium Level 144 136-145 mmol/L Potassium Level 4.3 3.5-5.1 mmol/L Chloride Level 109 H 98-107 mmol/L Carbon Dioxide Level 26 20-31 mmol/L Anion Gap 9 5-15 Blood Urea Nitrogen 14 9-23 mg/dL Creatinine 1.30 H 0.550-1.02 mg/dL Glomerular Filtration Rate Calc 49 >90 mL/min BUN/Creatinine Ratio 10.8 10.0-20.0 Serum Glucose 124 H 74-106 mg/dL Calcium Level 8.9 8.7-10.4 mg/dL Total Bilirubin 0.3 0.2-1.0 mg/dL Aspartate Amino Transferase (AST) 16 13-40 U/L Alanine Aminotransferase (ALT) 12 7-40 U/L Alkaline Phosphatase 65 46-116 U/L Total Protein 6.1 5.7-8.2 g/dL Albumin 3.8 3.2-4.8 g/dL Magnesium Level 1.9 1.6-2.6 mg/dL Urine Color Yellow Yellow Urine Clarity Clear Clear Urine pH 6.0 5.0-9.0 Urine Specific [place] 1.023 1.001-1.035 Urine Protein Negative Negative Urine Ketones Negative Negative Urine Blood Trace H Negative /uL Urine Nitrite Negative Negative Urine Bilirubin Negative Negative Urine Urobilinogen Normal Negative mg/dL Urine Leukocyte Esterase Negative Negative /uL Urine RBC 17 0 - 4 /hpf Urine Microscopic WBC 1 0-5 /HPF Urine Squamous Epithelial Cells Few <5 /hpf Urine Bacteria None seen None Seen /hpf Urine Glucose Normal Normal mg/dL Assessment/Plan Problem List: (1) Ureterolithiasis (2) Hydronephrosis with renal calculous obstruction Plan pain meds expulsive measures lithotripsy TBA outpt if fails trial of passage Plan discussed with: Patient, Other ABRAHAN MARTINEZ NP Apr 22, 2025 11:14
--- NOTE | 2025-04-22 14:19 | DVHPN2 ---
Progress Note Date Seen: Apr 22, 2025 Medical Necessity Reason Pt with a Central, PICC or Fol: No Subjective Patient reports: No new complaints Review of Systems: HEENT:Normal, CVS:Normal, RESPIRATORY:Normal, GI:Normal, :Normal, MSK:Normal, NEURO:Normal Objective vital signs Vital Sign Date Time Temp Pulse Resp B/P (MAP) Pulse Ox O2 Delivery O2 Flow Rate FiO2 04/22/25 13:00 97.7 83 17 127/88 (101) 96 97.7 04/21/25 20:00 Room Air* 0 21 Total Intake and Output 04/21/25 04/21/25 04/22/25 15:00 23:00 07:00 Intake Total 1000 ml 375 ml 650 ml Output Total 500 ml Balance 1000 ml -125 ml 650 ml medications Current Medications Medications Dose Ordered Sig/Padmini Route Start Time Stop Time Status Last Admin Dose Admin Sodium Chloride 1,000 ml @ 125 mls/hr Q8H IV 04/21/25 16:15 04/22/25 10:37 125 MLS/HR Acetaminophen/ Hydrocodone Bitart 1 tab Q4HP PRN PO 04/21/25 14:45 04/22/25 11:18 1 TAB Ondansetron HCl 4 mg Q4HP PRN IV 04/21/25 14:45 04/21/25 16:06 4 MG Docusate Sodium 100 mg BIDPRN PRN PO 04/21/25 14:45 Acetaminophen 650 mg Q6HP PRN PO 04/21/25 14:45 Ketorolac Tromethamine 30 mg Q6HPRN PRN IV 04/21/25 15:45 04/26/25 15:44 04/22/25 10:34 30 MG Tamsulosin HCl 0.4 mg QPM PO 04/22/25 18:00 Examination: GENERAL:Normal, HEENT:Normal, NECK:Normal, LUNGS:Normal, CVS:Normal, ABDOMEN:Normal, MSK:Normal, SKIN:Normal, NEURO:Normal, :Normal laboratory and microbiology Laboratory Tests 04/22/25 06:00 Test 04/22/25 06:00 Range/Units Serum Glucose 124 H 74-106 mg/dL Microbiology Date/Time Source Procedure Growth Status 04/21/25 09:41 Voided Urine Urine Culture - Preliminary Resulted Problem List/Assessment/Plan Problem List/Assessment/Plan #1 left renal stone/hydronephrosis: ivf, flomax #2 sirs due to renal colic #3 ? acute renal failure: dc toradol Plan discussed with: Patient Date of Service: Apr 22, 2025 Billing Provider: PANKAJ TITUS MD Common Visit Codes: [id number] INP/OBS CARE(HIGH) PANKAJ TITUS MD Apr 22, 2025 14:19
[2025-04-22] MEDS: MANNITOL FTV 25% 12.5 GM/50 ML 50 ML IV ONE (15:43)
[2025-04-22] MEDS: MORPHINE SULFATE INJ 2 MG/ml SYRG IV PRN (16:06)
[2025-04-22] MEDS: TAMSULOSIN HYDROCHLORIDE 0.4 MG CAP PO SCH (18:00)
[2025-04-23] VITALS (8 sets, daily range): BP systolic 116–144; BP diastolic 73–88; PULSE 85–100; RESP 16–18; TEMP 98–98.4; O2SAT 96–99
[2025-04-23 07:16] LABS: Hematocrit 31.2 % (36.0-46.0); Hemoglobin 10.5 g/dL (12.2-16.2); Mean Corpuscular Hemoglobin 30.1 pg (28.0-32.0); Mean Corpuscular Volume 89.7 fL (80.0-100.0); Nucleated Red Blood Cells % 0.1 %
[2025-04-23 07:30] LABS: Potassium 4.0 mmol/L (3.5-5.1); Sodium 144 mmol/L (136-145)
[2025-04-23 07:31] LABS: Anion Gap 8 (5-15); Carbon Dioxide 26 mmol/L (20-31)
[2025-04-23 07:34] LABS: Calcium 8.5 mg/dL (8.7-10.4); Chloride 110 mmol/L (98-107)
[2025-04-23 07:37] LABS: BUN/Creatinine Ratio 12.2 (10.0-20.0); Blood Urea Nitrogen 10 mg/dL (9-23); Glucose 101 mg/dL (74-106)
[2025-04-23] MEDS ORDERED: SODIUM CHLORIDE 0.9% 1,000 ML IV SCH (09:45)
--- NOTE | 2025-04-23 11:59 | DVHPN2 ---
Progress Note Date Seen: Apr 23, 2025 Medical Necessity Reason Pt with a Central, PICC or Fol: No Subjective Patient reports: No new complaints (Patient says she feels left renal stone is passed the pelvic junction.) Changes from previous H/P or p: No Changes Objective vital signs Vital Sign Date Time Temp Pulse Resp B/P (MAP) Pulse Ox O2 Delivery O2 Flow Rate FiO2 04/23/25 09:00 98.3 96 16 121/76 (91) 96 98.3 04/22/25 20:00 Room Air* 0 21 Total Intake and Output 04/22/25 04/22/25 04/23/25 15:00 23:00 07:00 Intake Total 550 ml 1150 ml 600 ml Balance 550 ml 1150 ml 600 ml medications Current Medications Medications Dose Ordered Sig/Padmini Route Start Time Stop Time Status Last Admin Dose Admin Acetaminophen/ Hydrocodone Bitart 1 tab Q4HP PRN PO 04/21/25 14:45 04/23/25 06:38 1 TAB Ondansetron HCl 4 mg Q4HP PRN IV 04/21/25 14:45 04/21/25 16:06 4 MG Docusate Sodium 100 mg BIDPRN PRN PO 04/21/25 14:45 Acetaminophen 650 mg Q6HP PRN PO 04/21/25 14:45 Tamsulosin HCl 0.4 mg QPM PO 04/22/25 18:00 04/22/25 18:00 0.4 MG Morphine Sulfate 2 mg Q4HPRN PRN IV 04/22/25 14:15 04/23/25 08:48 2 MG Sodium Chloride 1,000 ml @ 200 mls/hr Q5H IV 04/23/25 09:45 Examination: GENERAL:Normal, HEENT:Normal, NECK:Normal, LUNGS:Normal, CVS:Normal, ABDOMEN:Normal, MSK:Normal, SKIN:Normal, NEURO:Normal laboratory and microbiology Laboratory Tests 04/23/25 06:41 Test 04/23/25 06:41 Range/Units Serum Glucose 101 74-106 mg/dL Microbiology Date/Time Source Procedure Growth Status 04/21/25 09:41 Voided Urine Urine Culture - Preliminary Resulted Labs and/or images reviewed: Labs reviewed by me, Image(s) reviewed by me Problem List/Assessment/Plan Problem List/Assessment/Plan #1 left renal stone/hydronephrosis: ivf at 100 cc an hour half NS, flomax. Urology exposed Solu-Medrol. Pain control and if still has stones, follow up outpatient for lithotripsy #2 sirs due to renal colic #3 ? acute renal failure: dc Toradol Plan discussed with: Patient My Orders My Orders Orders - BRAXTON MARTEL MD Procedure Category Date Status Time Sod Chl 0.45% (Sodium PHA 04/23/25 Logged Chloride 0.45% Via 12:00 Date of Service: Apr 23, 2025 Billing Provider: BRAXTON MARTEL MD Common Visit Codes: [id number] SAME DATE (HIGH) BRAXTON MARTEL MD Apr 23, 2025 11:59
[2025-04-23 13:40] LABS: Potassium 4.5 mmol/L (3.5-5.1)
[2025-04-23 13:41] LABS: Anion Gap 8 (5-15); Carbon Dioxide 29 mmol/L (20-31)
[2025-04-23 13:42] LABS: Calcium 8.8 mg/dL (8.7-10.4); Chloride 109 mmol/L (98-107); Sodium 146 mmol/L (136-145)
[2025-04-23] MEDS: SOD CHL 0.45% 1,000 ML IV SCH (13:45)
[2025-04-23 13:46] LABS: BUN/Creatinine Ratio 15.0 (10.0-20.0); Blood Urea Nitrogen 12 mg/dL (9-23); Glucose 89 mg/dL (74-106)
[2025-04-24] VITALS (8 sets, daily range): BP systolic 116–135; BP diastolic 79–94; PULSE 78–100; RESP 16–19; TEMP 97.1–98.5; O2SAT 95–99
[2025-04-24 07:28] LABS: Potassium 4.1 mmol/L (3.5-5.1); Sodium 143 mmol/L (136-145)
[2025-04-24 07:29] LABS: Anion Gap 9 (5-15); Calcium 9.0 mg/dL (8.7-10.4); Carbon Dioxide 25 mmol/L (20-31)
[2025-04-24 07:34] LABS: BUN/Creatinine Ratio 14.1 (10.0-20.0); Blood Urea Nitrogen 10 mg/dL (9-23); Glucose 97 mg/dL (74-106)
[2025-04-24 07:36] LABS: Chloride 109 mmol/L (98-107)
[2025-04-24 07:37] LABS: Hematocrit 31.8 % (36.0-46.0); Hemoglobin 10.8 g/dL (12.2-16.2); Mean Corpuscular Hemoglobin 30.3 pg (28.0-32.0); Mean Corpuscular Volume 89.1 fL (80.0-100.0); Nucleated Red Blood Cells % 0.1 %
--- NOTE | 2025-04-24 13:30 | DVHPN2 ---
Subjective still c/o pain in llq area/no nausea or vomiting Changes from previous H/P or p: No Changes Eyes: No Pain, No Vision change, No Conjunctivae inflammation, No Eyelid inflammation, No Other, No Redness ENT: No Ear pain, No Ear discharge, No Nose pain, No Nose discharge, No Nose congestion, No Mouth pain, No Mouth swelling, No Throat pain, No Throat swelling, No Other Cardiovascular: No Chest Pain, No Palpitations, No Orthopnea, No Paroxysmal Noc. Dyspnea, No Edema, No Lt Headedness, No Other Respiratory: No Cough, No Dry, No Shortness of breath, No SOB with excertion, No Wheezing, No Hemoptysis, No Pleuritic Pain, No Sputum, No Other Gastrointestinal: Nausea; No Vomiting; Abdominal Pain (pelvic pain); No Diarrhea, No Constipation, No Melena, No Hematochezia, No Other Genitourinary: No Dysuria, No Frequency, No Incontinence, No Hematuria, No Retention, No Other Musculoskeletal: No other, No neck pain, No shoulder pain, No arm pain; back pain (left flank); No hand pain, No leg pain, No foot pain Skin: No Rash, No Lesions, No Jaundice, No Bruising, No Other Objective Vitals Vital Signs Date Time Temp Pulse Resp B/P (MAP) Pulse Ox O2 Delivery O2 Flow Rate FiO2 04/24/25 09:00 97.9 78 16 131/83 (99) 95 97.9 04/24/25 08:00 Room Air* 0 21 Intake/Output Intake and Output 04/24/25 07:00 Intake Total 1750 ml Output Total 2850 ml Balance -1100 ml Intake Oral 1750 ml Output Urine Total 2850 ml # Bowel Movements 2 General Appearance: Alert, Oriented X3, Cooperative, No acute distress Lungs: Clear to auscultation, Normal air movement Cardiovascular: Regular rate, Normal S1, Normal S2 Extremities: No edema Neuro: Normal speech, Strength at 5/5 X4 ext, Normal tone, Sensation intact, C ranial nerves 3-12 NL Psych/Mental Status: Mental status NL, Mood NL Medications Current Medications Medications Dose Ordered Sig/Padmini Route Start Time Stop Time Status Last Admin Dose Admin Acetaminophen/ Hydrocodone Bitart 1 tab Q4HP PRN PO 04/21/25 14:45 04/24/25 10:51 1 TAB Ondansetron HCl 4 mg Q4HP PRN IV 04/21/25 14:45 04/21/25 16:06 4 MG Docusate Sodium 100 mg BIDPRN PRN PO 04/21/25 14:45 Acetaminophen 650 mg Q6HP PRN PO 04/21/25 14:45 Tamsulosin HCl 0.4 mg QPM PO 04/22/25 18:00 04/23/25 18:46 0.4 MG Morphine Sulfate 2 mg Q4HPRN PRN IV 04/22/25 14:15 04/23/25 21:41 2 MG Sodium Chloride 1,000 ml @ 200 mls/hr Q5H IV 04/23/25 12:00 04/24/25 08:00 200 MLS/HR Laboratory Results Laboratory Tests 04/24/25 07:05 Chemistry Test 04/24/25 07:05 Calcium Level 9.0 mg/dL (8.7-10.4) Urinalysis Test 04/21/25 09:41 Urine Color Yellow (Yellow) Urine Clarity Clear (Clear) Urine pH 6.0 (5.0-9.0) Urine Specific [place] 1.023 (1.001-1.035) Urine Protein Negative (Negative) Urine Ketones Negative (Negative) Urine Blood Trace /uL (Negative) H Urine Nitrite Negative (Negative) Urine Bilirubin Negative (Negative) Urine Urobilinogen Normal mg/dL (Negative) Urine Leukocyte Esterase Negative /uL (Negative) Urine RBC 17 /hpf (0 - 4) Urine Microscopic WBC 1 /HPF (0-5) Urine Squamous Epithelial Cells Few /hpf (<5) Urine Bacteria None seen /hpf (None Seen) Urine Glucose Normal mg/dL (Normal) Microbiology Microbiology Date/Time Source Procedure Growth Status 04/21/25 09:41 Voided Urine Urine Culture - Final Complete Assessment/Plan Assessment/Plan left renal colic/hydronephrosis- pain control renal fn at baseline Plan discussed with: Patient, Other Date of Service: Apr 24, 2025 Billing Provider: BRITTNEY ROQUE MD Common Visit Codes: [id number] INP/OBS CARE(MOD) BRITTNEY ROQUE MD Apr 24, 2025 13:30
[2025-04-25] VITALS (7 sets, daily range): BP systolic 121–150; BP diastolic 79–92; PULSE 83–98; RESP 16–18; TEMP 97.3–98.9; O2SAT 96–100
[2025-04-25 07:21] LABS: Hematocrit 32.7 % (36.0-46.0); Hemoglobin 11.2 g/dL (12.2-16.2); Mean Corpuscular Hemoglobin 30.7 pg (28.0-32.0); Mean Corpuscular Volume 89.1 fL (80.0-100.0); Nucleated Red Blood Cells % 0.0 %
[2025-04-25 08:16] LABS: Carbon Dioxide 26 mmol/L (20-31)
[2025-04-25 08:18] LABS: Calcium 8.9 mg/dL (8.7-10.4)
[2025-04-25 08:23] LABS: BUN/Creatinine Ratio 11.5 (10.0-20.0); Blood Urea Nitrogen 9 mg/dL (9-23); Glucose 87 mg/dL (74-106)
[2025-04-25 08:47] LABS: Anion Gap 9 (5-15); Chloride 109 mmol/L (98-107); Potassium 4.4 mmol/L (3.5-5.1); Sodium 144 mmol/L (136-145)
--- NOTE | 2025-04-25 10:37 | DVHPN2 ---
Subjective pain is better/no nausea or vomiting Changes from previous H/P or p: No Changes Eyes: No Pain, No Vision change, No Conjunctivae inflammation, No Eyelid inflammation, No Other, No Redness ENT: No Ear pain, No Ear discharge, No Nose pain, No Nose discharge, No Nose congestion, No Mouth pain, No Mouth swelling, No Throat pain, No Throat swelling, No Other Cardiovascular: No Chest Pain, No Palpitations, No Orthopnea, No Paroxysmal Noc. Dyspnea, No Edema, No Lt Headedness, No Other Respiratory: No Cough, No Dry, No Shortness of breath, No SOB with excertion, No Wheezing, No Hemoptysis, No Pleuritic Pain, No Sputum, No Other Gastrointestinal: Nausea; No Vomiting; Abdominal Pain (pelvic pain); No Diarrhea, No Constipation, No Melena, No Hematochezia, No Other Genitourinary: No Dysuria, No Frequency, No Incontinence, No Hematuria, No Retention, No Other Musculoskeletal: No other, No neck pain, No shoulder pain, No arm pain; back pain (left flank); No hand pain, No leg pain, No foot pain Skin: No Rash, No Lesions, No Jaundice, No Bruising, No Other Objective Vitals Vital Signs Date Time Temp Pulse Resp B/P (MAP) Pulse Ox O2 Delivery O2 Flow Rate FiO2 04/25/25 08:54 97.6 89 18 121/79 (93) 99 97.6 04/24/25 20:00 Room Air* 0 21 Intake/Output Intake and Output 04/25/25 07:00 Intake Total 740 ml Output Total 2300 ml Balance -1560 ml Intake Oral 740 ml Output Urine Total 2300 ml # Voids 6 # Bowel Movements 3 General Appearance: Alert, Oriented X3, Cooperative, No acute distress Lungs: Clear to auscultation, Normal air movement Cardiovascular: Regular rate, Normal S1, Normal S2 Extremities: No edema Neuro: Normal speech, Strength at 5/5 X4 ext, Normal tone, Sensation intact, C ranial nerves 3-12 NL Psych/Mental Status: Mental status NL, Mood NL Medications Current Medications Medications Dose Ordered Sig/Padmini Route Start Time Stop Time Status Last Admin Dose Admin Acetaminophen/ Hydrocodone Bitart 1 tab Q4HP PRN PO 04/21/25 14:45 04/25/25 06:27 1 TAB Ondansetron HCl 4 mg Q4HP PRN IV 04/21/25 14:45 04/21/25 16:06 4 MG Docusate Sodium 100 mg BIDPRN PRN PO 04/21/25 14:45 Acetaminophen 650 mg Q6HP PRN PO 04/21/25 14:45 Tamsulosin HCl 0.4 mg QPM PO 04/22/25 18:00 04/24/25 16:43 0.4 MG Morphine Sulfate 2 mg Q4HPRN PRN IV 04/22/25 14:15 04/23/25 21:41 2 MG Sodium Chloride 1,000 ml @ 200 mls/hr Q5H IV 04/23/25 12:00 04/25/25 09:49 200 MLS/HR Laboratory Results Laboratory Tests 04/25/25 06:00 Chemistry Test 04/25/25 06:00 Calcium Level 8.9 mg/dL (8.7-10.4) Urinalysis Test 04/21/25 09:41 Urine Color Yellow (Yellow) Urine Clarity Clear (Clear) Urine pH 6.0 (5.0-9.0) Urine Specific [place] 1.023 (1.001-1.035) Urine Protein Negative (Negative) Urine Ketones Negative (Negative) Urine Blood Trace /uL (Negative) H Urine Nitrite Negative (Negative) Urine Bilirubin Negative (Negative) Urine Urobilinogen Normal mg/dL (Negative) Urine Leukocyte Esterase Negative /uL (Negative) Urine RBC 17 /hpf (0 - 4) Urine Microscopic WBC 1 /HPF (0-5) Urine Squamous Epithelial Cells Few /hpf (<5) Urine Bacteria None seen /hpf (None Seen) Urine Glucose Normal mg/dL (Normal) Microbiology Microbiology Date/Time Source Procedure Growth Status 04/21/25 09:41 Voided Urine Urine Culture - Final Complete Labs and/or images reviewed: Labs reviewed by me, Image(s) reviewed by me Assessment/Plan Assessment/Plan left renal colic/hydronephrosis- pain controlled//pt states was told by urology procedure will be on saturday or saturday will call urology and check- advised per reports hydronephrosis has improved and stones are small for litho- renal fn at baseline Plan discussed with: Patient, Other Date of Service: Apr 25, 2025 Billing Provider: BRITTNEY ROQUE MD Common Visit Codes: [id number] INP/OBS CARE(MOD) BRITTNEY ROQUE MD Apr 25, 2025 10:37
--- NOTE | 2025-04-25 19:56 | DVHPN2 ---
Progress Note - Dictate Date Seen: Apr 25, 2025 Has the PT tested + for MRSA If YES, has PT been informed?: No Medical Necessity Reason Pt with a Central, PICC or Fol: No Medical Necessity Reason Patient would like to undergo lithotripsy as inpatient if feasible. The machine has been ordered for use on 04/26/2025 but it is not confirmed Subjective Flank pain is better but patient would like to stay for lithotripsy if possible vital signs Vital Sign Date Time Temp Pulse Resp B/P (MAP) Pulse Ox O2 Delivery O2 Flow Rate FiO2 04/25/25 16:37 98.4 83 18 128/79 (95) 98 98.4 04/25/25 08:00 Room Air* 0 21 Total Intake and Output 04/24/25 04/24/25 04/25/25 15:00 23:00 07:00 Intake Total 120 ml 620 ml Output Total 2300 ml Balance -2180 ml 620 ml medications Current Medications Medications Dose Ordered Sig/Padmini Route Start Time Stop Time Status Last Admin Dose Admin Acetaminophen/ Hydrocodone Bitart 1 tab Q4HP PRN PO 04/21/25 14:45 04/25/25 13:53 1 TAB Ondansetron HCl 4 mg Q4HP PRN IV 04/21/25 14:45 04/21/25 16:06 4 MG Docusate Sodium 100 mg BIDPRN PRN PO 04/21/25 14:45 Acetaminophen 650 mg Q6HP PRN PO 04/21/25 14:45 Tamsulosin HCl 0.4 mg QPM PO 04/22/25 18:00 04/25/25 18:22 0.4 MG Morphine Sulfate 2 mg Q4HPRN PRN IV 04/22/25 14:15 04/23/25 21:41 2 MG Sodium Chloride 1,000 ml @ 200 mls/hr Q5H IV 04/23/25 12:00 04/25/25 14:00 200 MLS/HR objective KUB will be repeated PATIENT: SANDRA ESTEST: [id number] UNIT: [id number] : 1970 LOC: ER ROOM / BED: / AGE / SEX: 54 / F ADM STATUS: REG ER SERVICE [id number] ORDERING PHYSICIAN: KAPIL ROTH MD PROCEDURE(s): ABPL - CT AB PEL WO CON-NO ORAL OR IV REASON: left flank pain ORDER NUMBER(s): [id number], ACCESSION NUMBER(s): [id number] CLINICAL INFORMATION: 54 years old, Female; left flank pain. TECHNIQUE: Axial CT images of the abdomen and pelvis were obtained without IV contrast. Coronal and sagittal reformatted images were obtained, reviewed, and stored. Evaluation of the parenchymal organs is limited without IV contrast. Evaluation of the bowel and mesentery is limited without oral contrast. All CT scans at this medical facility are performed using dose modulation techniques as appropriate to a performed exam including the following: Automated exposure control was utilized; adjustment of the MA and/or KV according to patient size; and use of iterative reconstruction technique. CTDIvol = 7.16 mGy DLP = 371.6 mGy-cm COMPARISON: US PELVIC on DOS: 05/27/23, US TRANSVAGINAL US NON OB on DOS: 05/26/23 FINDINGS: Lung bases: Lung bases are clear. Liver: Lobulated fluid density structure in the inferior aspect of the right hepatic lobe measuring up to 4.1 cm, likely cyst. Additional scattered, small subcentimeter low-attenuation lesions are seen in the liver, likely small cysts, but too small to characterize. Biliary: No calcified gallstones or biliary ductal dilatation. Spleen: Unremarkable. Pancreas: Grossly unremarkable in its noncontrast enhanced appearance. Adrenal glands: Unremarkable. No mass. Kidneys: Nsys-hl-flzxifyt left hydronephrosis. There are 2 adjacent calculi in the proximal left ureter measuring 3 mm and 4 mm, respectively additional small nonobstructing bilateral renal calculi are seen. Aorta/Vascular: Mild atherosclerotic calcification. No abdominal aortic aneurysm. Lymph nodes: No mass or lymphadenopathy. Bowel/mesentery: No small bowel obstruction. No free air or free fluid. Appendix is visualized and appears unremarkable. Moderate stool in the colon. Pelvic organs: Grossly unremarkable. Bladder: Unremarkable. No mass. Abdominal wall: No mass or hernia. Bones: No acute fracture or suspicious intraosseous lesion. IMPRESSION: 1. Admt-fn-tnkunggr left hydronephrosis with 2 adjacent obstructing calculi in the proximal left ureter. 2. Additional small nonobstructing bilateral renal calculi. 3. Lobulated cyst in the inferior right hepatic lobe. Additional small subcentimeter low-attenuation lesions in the liver, likely small cysts, but too small to characterize. 4. Additional findings as described above. ATED BY: DEYVI TOM DO DICTATED DATE/TIME: 04/18/251801 SIGNED BY: DEYVI TOM DO SIGNED DATE/TIME: 04/18/251801 CC: laboratory and microbiology Laboratory Tests 04/25/25 06:00 Test 04/25/25 06:00 Range/Units Serum Glucose 87 74-106 mg/dL Problem List Two small left proximal ureteral calculus previously noted on 04/18/2025. Status of these two stones we will be re-evaluated by another KUB Assessment/Plan Left nephro lithiasis and left ureteral calculi Left ESWL with possible cystoscopy and stent placement tomorrow if machine available Plan discussed with: Patient, Spouse, Other GABBY MARTEL MD Apr 25, 2025 19:56
[2025-04-26] VITALS (10 sets, daily range): BP systolic 126–153; BP diastolic 80–97; PULSE 79–100; RESP 11–20; TEMP 97.4–98.7; O2SAT 96–100
[2025-04-26 01:38] LABS: INR 0.95 (0.9-1.15); Partial Thromboplastin Time 24.1 SEC (24.5-34.5); Prothrombin Time 10.1 sec (9.3-11.8)
--- NOTE | 2025-04-26 05:35 | DVH ---
CHEST RADIOGRAPH Indication: Procedure Technique: Single frontal view of the chest was obtained Comparison: XR CHEST 2 VIEWS on DOS: 02/10/24 FINDINGS: Lines and Tubes: None Lungs: No focal consolidation. Pleura: No effusion. No pneumothorax. Cardiomediastinal contours: Unremarkable Bones: No acute osseous abnormality. IMPRESSION: 1. No acute cardiopulmonary disease.
--- NOTE | 2025-04-26 05:36 | DVH ---
ABDOMINAL RADIOGRAPH Indication: Left ureteral stones. Technique: Single frontal view of the abdomen was obtained Comparison: US KIDNEY on DOS: 04/21/25 FINDINGS: Lines and tubes: None There is a nonobstructive bowel gas pattern. There is stool throughout the colon. No supine radiographic evidence of pneumoperitoneum. Bony structures unremarkable. IMPRESSION: 1. Stool throughout the colon may indicate constipation in the appropriate clinical setting. No dilated bowel loops.
[2025-04-26 06:48] LABS: Hematocrit 32.1 % (36.0-46.0); Hemoglobin 11.1 g/dL (12.2-16.2); Mean Corpuscular Hemoglobin 31.0 pg (28.0-32.0); Mean Corpuscular Volume 89.6 fL (80.0-100.0); Nucleated Red Blood Cells % 0.0 %
[2025-04-26 07:04] LABS: Calcium 9.2 mg/dL (8.7-10.4); Potassium 4.0 mmol/L (3.5-5.1); Sodium 143 mmol/L (136-145)
[2025-04-26 07:05] LABS: Anion Gap 7 (5-15); Carbon Dioxide 28 mmol/L (20-31)
[2025-04-26 07:10] LABS: BUN/Creatinine Ratio 11.3 (10.0-20.0); Glucose 89 mg/dL (74-106)
[2025-04-26 07:11] LABS: Blood Urea Nitrogen 8 mg/dL (9-23); Chloride 108 mmol/L (98-107)
--- NOTE | 2025-04-26 11:42 | DVHPN2 ---
Progress Note Date Seen: Apr 26, 2025 Has the PT tested + for MRSA If YES, has PT been informed?: No Medical Necessity Reason Pt with a Central, PICC or Fol: No Subjective Patient reports: No new complaints Review of Systems: HEENT:Normal, CVS:Normal, RESPIRATORY:Normal, GI:Normal, :Normal, MSK:Normal, NEURO:Normal Objective vital signs Vital Sign Date Time Temp Pulse Resp B/P (MAP) Pulse Ox O2 Delivery O2 Flow Rate FiO2 04/26/25 09:00 97.9 79 18 131/85 (100) 98 97.9 04/26/25 08:00 Room Air* 0 21 Total Intake and Output 04/25/25 04/25/25 04/26/25 15:00 23:00 07:00 Intake Total 860 ml 0 ml Balance 860 ml 0 ml medications Current Medications Medications Dose Ordered Sig/Padmini Route Start Time Stop Time Status Last Admin Dose Admin Acetaminophen/ Hydrocodone Bitart 1 tab Q4HP PRN PO 04/21/25 14:45 04/25/25 21:47 1 TAB Ondansetron HCl 4 mg Q4HP PRN IV 04/21/25 14:45 04/21/25 16:06 4 MG Docusate Sodium 100 mg BIDPRN PRN PO 04/21/25 14:45 Acetaminophen 650 mg Q6HP PRN PO 04/21/25 14:45 Tamsulosin HCl 0.4 mg QPM PO 04/22/25 18:00 04/25/25 18:22 0.4 MG Morphine Sulfate 2 mg Q4HPRN PRN IV 04/22/25 14:15 04/23/25 21:41 2 MG Sodium Chloride 1,000 ml @ 200 mls/hr Q5H IV 04/23/25 12:00 04/26/25 09:22 200 MLS/HR Examination: GENERAL:Normal, HEENT:Normal, NECK:Normal, LUNGS:Normal, CVS:Normal, ABDOMEN:Normal, MSK:Normal, SKIN:Normal, NEURO:Normal, :Normal laboratory and microbiology Laboratory Tests 04/26/25 06:01 Test 04/26/25 06:01 Range/Units Serum Glucose 89 74-106 mg/dL Microbiology Date/Time Source Procedure Growth Status 04/21/25 09:41 Voided Urine Urine Culture - Final Complete Problem List/Assessment/Plan Problem List/Assessment/Plan #1 left renal stone/hydronephrosis: ivf, flomax, lithotripsy today #2 sirs due to renal colic #3 ? acute renal failure: dc toradol Plan discussed with: Patient Date of Service: Apr 26, 2025 Billing Provider: PANKAJ TITUS MD Common Visit Codes: [id number] INP/OBS CARE(HIGH) PANKAJ TITUS MD Apr 26, 2025 11:42
[2025-04-26] MEDS ORDERED: KETOROLAC TROMETH 30 MG/ML 1ML VIAL ONE (17:24)
[2025-04-26] MEDS ORDERED: fentaNYL CITRATE 100 MCG/2 ML VL ONE (17:24)
[2025-04-26] MEDS ORDERED: LIDOCAINE 2% (LOCAL ANESTH.) PF 5ml SDV ONE (17:24)
[2025-04-26] MEDS ORDERED: GLYCOPYRROLATE 0.2 MG/ML 1ML VIAL ONE (17:24)
[2025-04-26] MEDS ORDERED: PROPOFOL 10 MG/ML 20 ML IV ONE (17:24)
[2025-04-26] MEDS ORDERED: MIDAZOLAM HCL 2MG/2ML 2ml VIAL (1mg/ml) ONE (17:24)
[2025-04-26] MEDS ORDERED: MEPERIDINE HCL (25 MG/ML) 1ML VIAL ONE ×2 (17:24→18:48)
[2025-04-26] MEDS ORDERED: ONDANSETRON HCL 4 MG/2 ML VIAL ONE (17:24)
[2025-04-26] MEDS: CIPROFLOXACIN 400MG/200ML 200 ML IV ONE (19:00)
--- NOTE | 2025-04-26 19:07 | DVHNC2 ---
Procedure - OPERATIVE REPORT Pre-op. Diagnosis: Proximal ureteral Stones - LEFT Hydronephrosis - LEFT Flank Pain - LEFT Renal Stones - LEFT Post-op. Diagnosis: Same as pre-op diagnosis Operation: Extracorporeal Shockwave Lithotripsy - LEFT Cystoscopy, Ureteral stent placement - LEFT Anesthesia: General Indications: Patient is here to undergo left ESWL therapy along with cystoscopy and left ureteral stent placement. Informed Consent: Options were discussed. Treatments can include conservative therapy, Extra-corporeal shockwave therapy (ESWL), Ureteroscopy with laser lithotripsy vs extraction, PCNL (percutaneous nephrolithotomy); with or without the use of Stents or retrograde pyelography. Corresponding advantages and disadvantages were also discussed. Questions were addressed. Patient wishes to proceed with left ESWL and possible cystoscopy with left ureteral stent placement. Risks and benefits of the surgery were reviewed with patient which include but are not limited to infection, bleeding, urosepsis, renal hemorrhage/hematoma formation, ureteral perforation, ureteral stricture formation, need for further surgery if stone does not break, ureteral obstruction from stone fragments, cardiac arrthymia and risks of anesthesia. Despite these risks, patient wishes to proceed with the surgery. Patient fully understood and signed the consent. Details of Procedure: Under satisfactory anesthesia, the patient was positioned on the lithotripsy table. Using fluoroscopy the stone was localized. Patient was then positioned in dorsal lithotomy position, prep and draped under standard fashion and cystoscopy with a 22Fr rigid cystoscope was performed. The left ureteral orifice was cannulated with a sensoer tip guidewire and advanced into the left renal pelvis under fluroscopy. A [address] left Ureteral stent was then placed over the wire under Fluoroscopic and cystoscopic guidance. The bladder was emptied and the cystoscope was taken out. We then positioned the patient into a supine position, identified the stones and began extra-corporeal shockwave lithotripsy. Starting at low energy levels, shockwave treatment was commenced. The energy level was gradually increased and stones were fragmented. Once therapy was done, general anesthesia was reversed, the patient was then taken off the lithotripsy table and sent to recovery room in stable condition. Specimens: None Complications: None Findings: Stone Laterality: Left Stone Location: proximal ureteral stones 3 mm + 4 mm and left lower pole renal stone Shocks Delivered: 1900 + 500 Max Power settin Fragmentation Quality: Well Ureteral stent size & length: [address] left ureteral stent GABBY MARTEL MD Apr 26, 2025 19:06
[2025-04-26] MEDS: ACETAMINOPHEN IV 1000 MG/100ML (10MG/ML) IV ONE (19:35)
[2025-04-26] MEDS ORDERED: HYDROmorphone HCL 2 MG/ML VL/or syr IV PRN (19:45)
[2025-04-26] MEDS ORDERED: ONDANSETRON HCL 4 MG/2 ML VIAL IV PRN (19:45)
[2025-04-26] MEDS: ACETAMINOPHEN IV 100 ML IV ONE (19:55)
[2025-04-27 01:00] VITALS: BP 118/80; PULSE 106; RESP 18; TEMP 98.2; O2SAT 94
[2025-04-27 05:00] VITALS: BP 124/81; PULSE 98; RESP 18; TEMP 98.2; O2SAT 96
[2025-04-27 06:43] LABS: Hematocrit 35.4 % (36.0-46.0); Hemoglobin 12.0 g/dL (12.2-16.2); Mean Corpuscular Hemoglobin 29.9 pg (28.0-32.0); Mean Corpuscular Volume 88.2 fL (80.0-100.0); Nucleated Red Blood Cells % 0.1 %
[2025-04-27 06:55] LABS: Chloride 105 mmol/L (98-107); Potassium 4.2 mmol/L (3.5-5.1); Sodium 141 mmol/L (136-145)
[2025-04-27 06:56] LABS: Anion Gap 13 (5-15); Carbon Dioxide 23 mmol/L (20-31)
[2025-04-27 06:57] LABS: Calcium 9.4 mg/dL (8.7-10.4)
[2025-04-27 07:02] LABS: BUN/Creatinine Ratio 15.1 (10.0-20.0); Blood Urea Nitrogen 14 mg/dL (9-23); Glucose 186 mg/dL (74-106)
[2025-04-27 08:00] VITALS: PULSE 87; RESP 16; O2SAT 96
--- NOTE | 2025-04-27 08:28 | DVHPN2 ---
Progress Note - Dictate Date Seen: Apr 27, 2025 Has the PT tested + for MRSA If YES, has PT been informed?: No Medical Necessity Reason Pt with a Central, PICC or Fol: No The following are medically ne: Cantu Catheter Medical Necessity Reason Postop day 1. Status post left ESWL and stent placement Subjective Patient is complaining of left lower quadrant abdominal pain possibly from catheter discomfort vital signs Vital Sign Date Time Temp Pulse Resp B/P (MAP) Pulse Ox O2 Delivery O2 Flow Rate FiO2 04/27/25 05:00 98.2 98 18 124/81 (95) 96 98.2 04/26/25 20:00 Room Air* 0 21 Total Intake and Output 04/26/25 04/26/25 04/27/25 15:00 23:00 07:00 Intake Total 200 ml 1675 ml Output Total 2050 ml Balance 200 ml -375 ml medications Current Medications Medications Dose Ordered Sig/Padimni Route Start Time Stop Time Status Last Admin Dose Admin Acetaminophen/ Hydrocodone Bitart 1 tab Q4HP PRN PO 04/21/25 14:45 04/27/25 08:25 1 TAB Ondansetron HCl 4 mg Q4HP PRN IV 04/21/25 14:45 04/27/25 02:25 4 MG Docusate Sodium 100 mg BIDPRN PRN PO 04/21/25 14:45 Acetaminophen 650 mg Q6HP PRN PO 04/21/25 14:45 Tamsulosin HCl 0.4 mg QPM PO 04/22/25 18:00 04/25/25 18:22 0.4 MG Morphine Sulfate 2 mg Q4HPRN PRN IV 04/22/25 14:15 04/23/25 21:41 2 MG Sodium Chloride 1,000 ml @ 200 mls/hr Q5H IV 04/23/25 12:00 04/27/25 05:38 200 MLS/HR objective Cantu catheter in place with clear urine. This will be removed laboratory and microbiology Laboratory Tests 04/27/25 05:44 Test 04/27/25 05:44 Range/Units Serum Glucose 186 H 74-106 mg/dL Problem List Status post left ESWL with stent placement Assessment/Plan Left nephro lithiasis and left ureteral calculi- treated with lithotripsy and stent placed. DC Cantu and ambulate. If pain is resolved, she may be discharged to home with follow up in two weeks for office stent removal Plan discussed with: Patient GABBY MARTEL MD Apr 27, 2025 08:28
[2025-04-27 09:00] VITALS: BP 134/89; PULSE 87; RESP 16; TEMP 96.9; O2SAT 95
--- NOTE | 2025-04-27 10:42 | DVHDS2 ---
Discharge Summary Date of Admission Apr 21, 2025 at 14:37 Date of Discharge: Apr 27, 2025 Labs/Diagnostic Data: Laboratory Results Test 04/27/25 05:44 04/26/25 01:10 04/22/25 06:00 04/21/25 17:01 White Blood Count 8.5 10^3/uL (4.4-10.8) Red Blood Count 4.02 10^6/uL (4.0-5.20) Hemoglobin 12.0 g/dL (12.2-16.2) Hematocrit 35.4 % (36.0-46.0) Mean Corpuscular Volume 88.2 fL (80.0-100.0) Mean Corpuscular Hemoglobin 29.9 pg (28.0-32.0) Mean Corpuscular Hemoglobin Concent 33.9 g/dL (32.0-36.0) Red Cell Distribution Width 13.8 % (11.8-14.3) Platelet Count 435 10^3/uL (140-450) Mean Platelet Volume 6.9 fL (6.9-10.8) Neutrophils (%) (Auto) 87.0 % (37.0-80.0) Lymphocytes (%) (Auto) 9.8 % (10.0-50.0) Monocytes (%) (Auto) 3.0 % (0.0-12.0) Eosinophils (%) (Auto) 0.0 % (0.0-7.0) Basophils (%) (Auto) 0.2 % (0.0-2.0) Neutrophils # (Auto) 7.4 10 ^3/uL (1.6-8.6) Lymphocytes # (Auto) 0.8 10 ^3/uL (0.4-5.4) Monocytes # (Auto) 0.3 10 ^3/uL (0-1.3) Eosinophils # (Auto) 0 10 ^3/uL (0-0.8) Basophils # (Auto) 0 10 ^3/uL (0-0.2) Nucleated Red Blood Cells 0.1 % Sodium Level 141 mmol/L (136-145) Potassium Level 4.2 mmol/L (3.5-5.1) Chloride Level 105 mmol/L (98-107) Carbon Dioxide Level 23 mmol/L (20-31) Anion Gap 13 (5-15) Blood Urea Nitrogen 14 mg/dL (9-23) Creatinine 0.93 mg/dL (0.550-1.02) Glomerular Filtration Rate Calc 73 mL/min (>90) BUN/Creatinine Ratio 15.1 (10.0-20.0) Serum Glucose 186 mg/dL (74-106) Calcium Level 9.4 mg/dL (8.7-10.4) Prothrombin Time 10.1 sec (9.3-11.8) Prothrombin Time INR 0.95 (0.9-1.15) Activated Partial Thromboplast Time 24.1 SEC (24.5-34.5) Total Bilirubin 0.3 mg/dL (0.2-1.0) Aspartate Amino Transferase (AST) 16 U/L (13-40) Alanine Aminotransferase (ALT) 12 U/L (7-40) Alkaline Phosphatase 65 U/L (46-116) Total Protein 6.1 g/dL (5.7-8.2) Albumin 3.8 g/dL (3.2-4.8) Magnesium Level 1.9 mg/dL (1.6-2.6) Test 04/21/25 09:41 Urine Color Yellow (Yellow) Urine Clarity Clear (Clear) Urine pH 6.0 (5.0-9.0) Urine Specific [place] 1.023 (1.001-1.035) Urine Protein Negative (Negative) Urine Ketones Negative (Negative) Urine Blood Trace /uL (Negative) Urine Nitrite Negative (Negative) Urine Bilirubin Negative (Negative) Urine Urobilinogen Normal mg/dL (Negative) Urine Leukocyte Esterase Negative /uL (Negative) Urine RBC 17 /hpf (0 - 4) Urine Microscopic WBC 1 /HPF (0-5) Urine Squamous Epithelial Cells Few /hpf (<5) Urine Bacteria None seen /hpf (None Seen) Urine Glucose Normal mg/dL (Normal) Other Laboratory Tests 04/27/25 05:44 Brief Hx & Hospital Course: see dictated note Condition at Discharge: Fair Final Diagnosis/Problems List left renal stone Discharge Disposition: Home Discharge Instruct/Medications Diet: Regular Activity: No Restrictions, As Tolerated Follow Up/Referral: schedule appt with urology/dr Reveles in 2 wks Medications: resume home meds script to pharmacy Scheduled Hydrocodone-Acetaminophen (Hydrocodone Bitartrate/AC 10-325 mg), 1 TAB PO Q4HP, (Reported) Topiramate (Topamax), 1 TAB PO BID, (Reported) Scheduled PRN Tramadol HCl (Tramadol HCl), 50 MG PO Q12HP PRN Discharge Statement: "Patient was advised to return to the ER or call 911 if any headaches, dizziness, shortness of breath, chest pain, abdominal pain, bleeding, fevers, or worsening of medical condition. Patient was counseled about treatment plan, medications, possible side effects, patientverbalized understanding. All questions were answered to the best of my ability. This discharge took greater then 30 minutes in planning, reviewing documentation, counseling the patient, and discussing with other team members." ASSESSMENT ASSESSMENT Assessment left renal stone Date of Service: Apr 27, 2025 Billing Provider: PANKAJ TITUS MD Common Visit Codes: 26750-JGV/OBS DISCH DAY >30min PANKAJ TITUS MD Apr 27, 2025 10:42
[2025-04-27] MEDS ORDERED: HYDR1TAB97 PO (10:46)
[2025-04-27] MEDS ORDERED: CEPH500C PO (10:46)
--- NOTE | 2025-04-27 10:59 | DVHDS ---
DATE OF DISCHARGE: 04/27/2025 HISTORY OF PRESENT ILLNESS: The patient is a 54-year-old lady who is admitted with complaints of left flank pain and has history of chronic low back pain. HOSPITAL COURSE: The patient had a renal ultrasound that showed evidence of left hydronephrosis with renal calculi. The patient was seen in Nephrology consult by Dr. Reveles. The patient in view of continued pain had lithotripsy done on 04/26/2025 with placement of a stent. The patient's pain is now resolved. She has been cleared for discharge and will be discharged home to be on S[place] p.r.n. for pain and cephalexin 500 mg t.i.d. for 7 days. She will follow up with Dr. Reveles for removal of stent in 2 weeks. The patient's creatinine was elevated to 1.30 that improved to 0.9 at the time of discharge. Also, the patient's white count was elevated to 12,000 that improved to 8000 at the time of discharge. FINAL DIAGNOSES: Therefore: * Left renal stone with hydronephrosis with renal colic status post lithotripsy with stent placement. * SIRS due to renal colic. * Acute renal failure, questionable vasomotor nephropathy. * Chronic back pain. Time spent in discharge planning and review of plan with the patient and nursing was 39 minutes. MD CHERELLE Banks/KATIANA TID: [id number] RECEIPT: [id number]
[2025-04-27] MEDS: ACETAMINOPHEN IV 1000 MG/100ML (10MG/ML) IV ONE (11:25)
[2025-04-27 12:27] VITALS: BP 134/89; PULSE 87; RESP 16; TEMP 36.1; O2SAT 95
[2025-04-27 13:04] VITALS: BP 138/85; PULSE 89; RESP 16; TEMP 97.8; O2SAT 98
--- NOTE | 2025-04-27 13:09 | ECG ---
[facility] Test Date: 2025-04-26 Test Time: 14:11:00 Pat Name: TIANNA ESTES Department: Respiratoy Room: 0251 A Gender: F Cook Helper Pastry: BLANCO : 1970 Requested By: PANKAJ TITUS Order Number: [id number] Reading MD: Fredi Marin Measurements Intervals [place] Rate: 84 P: 47 SC: 143 QRS: -14 QRSD: 87 T: 6 QT: 388 QTc: 459 Interpretive Statements Sinus rhythm Paired ventricular premature complexes RSR' in V1 or V2, right VCD or RVH ST elevation, consider inferior injury Artifact in lead(s) I,II,III,aVR,aVL,aVF Electronically Signed On 04-30-2025 15:31:42 PST by Fredi Marin Please click the below link to view image of tracing.
--- NOTE | 2025-04-28 07:29 | ECG ---
[facility] Test Date: 2025-04-26 Test Time: 14:16:34 Pat Name: TIANNA ESTES Department: Respiratoy Room: 0251 A Gender: F Regular Senior Care Provider: BLANCO : 1970 Requested By: PANKAJ TITUS Order Number: [id number] Reading MD: Fredi Marin Measurements Intervals [place] Rate: 80 P: 45 NC: 148 QRS: -24 QRSD: 99 T: 3 QT: 389 QTc: 449 Interpretive Statements Sinus rhythm Borderline left axis deviation Abnormal R-wave progression, late transition Electronically Signed On 04-30-2025 15:31:44 PST by Fredi Marin Please click the below link to view image of tracing.
== END 2025-04-27 13:36 | disposition home or self-care (01) | DRG 660 ==
LOC: ER 08:30 → OVERFLOW 14:37 → EAST 17:13
PROVIDERS: ADMIT Internal Medicine; ATTEND Internal Medicine
PROC: 0TF4XZZ Fragmentation in Left Kidney Pelvis, External Approach (ICD-10-PCS; 2025-04-26)
PROC: 0TF7XZZ Fragmentation in Left Ureter, External Approach (ICD-10-PCS; 2025-04-26)
PROC: 0T778DZ Dilation of Left Ureter with Intraluminal Device, Via Natural or Artificial Opening Endoscopic (ICD-10-PCS; principal; 2025-04-26 18:24)
DX: N13.2 Hydronephrosis with renal and ureteral calculous obstruction (principal); R65.10 Systemic inflammatory response syndrome (SIRS) of non-infectious origin without acute organ dysfunction; N17.0 Acute kidney failure with tubular necrosis; E87.6 Hypokalemia; G89.29 Other chronic pain; Z87.442 Personal history of urinary calculi; Z79.899 Other long term (current) drug therapy
CPT/HCPCS: 36415; 71045; 74018; 76775; 80048; 80053; 81001; 83735; 84132; 85025; 85610; 85730; 86850; 86900; 86901; 87086; 93005; 96361; 96374; 96375; A4344; G0378; J0131; J1100; J1885; J2003; J2250; J2405; J2704

== ENCOUNTER 2025-06-06 14:45 | Inpatient (IN) | payer OTHER ==
[~2025-06-06] VITALS: Ht 162.6 cm; Wt 69.5 kg
[~2025-06-06 14:45] MED LIST changes: +CEPH500C PO; +HYDR-4798 PO; +HYDR1TAB97 PO; +TOPI50TA32 PO
[2025-06-06 15:50] LABS: Hematocrit 27.4 % (36.0-46.0); Hemoglobin 9.0 g/dL (12.2-16.2); Mean Corpuscular Hemoglobin 31.2 pg (28.0-32.0); Mean Corpuscular Volume 94.3 fL (80.0-100.0); Nucleated Red Blood Cells % 0.0 %
[2025-06-06 15:57] LABS: Sodium 145 mmol/L (136-145)
[2025-06-06 15:58] LABS: Anion Gap 10 (5-15); Carbon Dioxide 23 mmol/L (20-31)
[2025-06-06 15:59] LABS: Calcium 9.6 mg/dL (8.7-10.4)
[2025-06-06 16:03] LABS: BUN/Creatinine Ratio 8.9 (10.0-20.0); Blood Urea Nitrogen 11 mg/dL (9-23); Glucose 102 mg/dL (74-106)
[2025-06-06 16:04] LABS: Chloride 112 mmol/L (98-107); Potassium 3.1 mmol/L (3.5-5.1)
[2025-06-06 16:26] LABS: Urine Protein, UAD 1+ (Negative)
--- NOTE | 2025-06-06 17:01 | ED.PDOC ---
History of Present Illness HPI Comments 54 y/o F, with PMHx of UTI's and kidney stones presents to the ED for CC of abdominal pain. Patent states, she was instructed by her urologist to report to the ED for pre-operative care for urolithiasis removal tomorrow (06/07/25). At this time patient c/o abdominal pain, flank pain, and pain upon urination. Patient denies hematuria, fever, or chills. Chief Complaint: Abdominal Pain Time Seen by MD: 16:00 Reviewed Notes: Nurses Notes, Medications, Allergies Allergies: Coded Allergies: NO KNOWN ALLERGIES (Unverified , 04/18/25) Home Meds Active Scripts Cephalexin Monohydrate (Cephalexin) 500 Mg Cap, 1 CAP PO TID for 7 Days, #21 CAP Prov:PANKAJ TITUS MD 04/27/25 Hydrocodone-Acetaminophen (Hydrocodone/Acetaminophen 5-325 mg) 1 Tab Tab, 1 TAB PO TIDPRN PRN for 6 Days, #18 TAB Prov:PANKAJ TITUS MD 04/27/25 Tramadol HCl (Tramadol HCl) 50 Mg Tab, 50 MG PO Q12HP PRN for 6 Days, #12 TAB Prov:KAPIL ROTH MD 04/18/25 Reported Medications Topiramate (Topamax) 50 Mg Tab, 1 TAB PO BID, #60 TAB 1 Refill 04/21/25 Hydrocodone-Acetaminophen (Hydrocodone Bitartrate/AC 10-325 mg) 1 Tab Tab, 1 TAB PO Q4HP for PAIN, TAB 04/21/25 Information Source: Patient Mode of Arrival: Ambulatory Severity: Moderate Timing: Days Duration: Since onset Prehospital treatment: None Past Medical History PAST MEDICAL HISTORY: Kidney Stones, UTI'S Surgical History: Tonsillectomy FINANCE ANALYST History: Denies all FINANCE ANALYST Hx Family History Family History: Reviewed,noncontributory to illness Social History Smoker: Non-Smoker Alcohol: Denies ETOH Use Drugs: Denies Drug Use Lives In: Home Constitutional: denies: chills, diaphoresis, fatigue, fever, malaise, sweats, weakness, others EENTM: denies: blurred vision, double vision, ear bleeding, ear discharge, ear drainage, ear pain, ear ringing, eye pain, eye redness, hearing loss, mouth pain, mouth swelling, nasal discharge, nose bleeding, nose congestion, nose pain, photophobia, tearing, throat pain, throat swelling, voice changes, others Respiratory: denies: cough, hemoptysis, orthopnea, SOB at rest, shortness of breath, SOB with excertion, stridor, wheezing, others Cardiovascular: denies: chest pain, dizzy spells, diaphoresis, Dyspnea on exertion, edema, irregular heart beat, left arm pain, lightheadedness, palpitations, PND, syncope, others Gastrointestinal: denies: abdomen distended, abdominal pain, blood streaked bowels, constipated, diarrhea, dysphagia, difficulty swallowing, hematemesis, melena, nausea, poor appetite, poor fluid intake, rectal bleeding, rectal pain, vomiting, others Genitourinary: reports: dysuria, flank pain; denies: abnormal vagina bleeding, burning, dyspareunia, frequency, hematuria, incontinence, pain, , vagina discharge, urgency, others Neurological: denies: dizziness, fainting, headache, left sided numbness, left sided weakness, numbness, paresthesia, pre-existing deficit, right sided num bness, right sided weakness, seizure, speech problems, tingling, tremors, weakness, others Musculoskeletal: denies: back pain, gout, joint pain, joint swelling, muscle pain, muscle stiffness, neck pain, others Integumetry: denies: bruises, change in color, change in hair/nails, dryness, laceration, lesions, lumps, rash, wounds, others Allergic/Immunocompromised: denies: Difficulty Healing, Frequent Infections, Hives, Itching, others Hematologic/Lymphatic: denies: anemia, blood clots, easy bleeding, easy bruising, swollen glands, others Endocrine: denies: excessive hunger, excessive sweating, excessive thirst, excessive urination, flushing, intolerance to cold, intolerance to heat, unexplained weight gain, unexplained weight loss, others Psychiatric: denies: anxiety, bipolar disorder, depression, hopeless, panic disorder, schizophrenia, sleepless, suicidal, others All Other Systems: Reviewed and Negative Physical Exam General Appearance: Moderate Distress HEENT: Normal ENT Inspection, Pharynx Normal, TMs Normal Neck: Full Range of Motion, Non-Tender, Normal, Normal Inspection Respiratory: Chest Non-Tender, Lungs Clear, No Accessory Muscle Use, No Respiratory Distress, Normal Breath Sounds Cardiovascular: No Edema, No JVD, No Murmur, No Gallop, Normal Peripheral Pulses, Regular Rate/Rhythm Breast Exam: Deferred Gastrointestinal: No Organomegaly, Non Tender, No Pulsatile Mass, Normal Bowel Sounds, Soft Genitalia: Deferred Pelvic: Deferred Rectal: Deferred Extremities: No calf tenderness, Normal capillary refill, Normal inspection, Normal range of motion, Non-tender, No pedal edema Musculoskeletal : Apperance: Normal Neurologic: Alert, arc and gas welder II-XII nml as Tested, No Motor Deficits, Normal Affect, Normal Mood, No Sensory Deficits Cerebellar Function: Normal Reflexes: Normal Skin: Dry, Normal Color, Warm Peripheral Pulses: 3+ Radial (R), 3+ Radial (L) Lymphatic: No Adenopathy Was a procedure done? Was a procedure done?: No Differential Dx Considerations may include: urolithiasis, UTI, pyelonephritis X-Ray, Labs, Meds, VS Vital Signs Date Time Temp Pulse Resp B/P (MAP) Pulse Ox O2 Delivery O2 Flow Rate FiO2 06/06/25 17:04 98.1 105 16 109/72 (84) 97 98.1 06/06/25 14:49 98.5 120 16 131/72 94 98.5 Lab Test 06/06/25 15:50 06/06/25 15:39 Range/Units Urine Color Dark-yellow Yellow Urine Clarity Turbid H Clear Urine pH 6.5 5.0-9.0 Urine Specific [place] 1.014 1.001-1.035 Urine Protein 1+ H Negative Urine Ketones Negative Negative Urine Blood 3+ H Negative /uL Urine Nitrite 1+ H Negative Urine Bilirubin 1+ H Negative Urine Urobilinogen 3 H Negative mg/dL Urine Leukocyte Esterase 3+ Negative /uL Urine RBC 584 0 - 4 /hpf Urine Microscopic WBC 38 H 0-5 /HPF Urine Squamous Epithelial Cells Few <5 /hpf Urine Bacteria Few H None Seen /hpf Urine Mucus Few None Seen Urine Glucose Normal Normal mg/dL White Blood Count 6.0 4.4-10.8 10^3/uL Red Blood Count 2.90 L 4.0-5.20 10^6/uL Hemoglobin 9.0 L 12.2-16.2 g/dL Hematocrit 27.4 L 36.0-46.0 % Mean Corpuscular Volume 94.3 80.0-100.0 fL Mean Corpuscular Hemoglobin 31.2 28.0-32.0 pg Mean Corpuscular Hemoglobin Concent 33.0 32.0-36.0 g/dL Red Cell Distribution Width 15.3 H 11.8-14.3 % Platelet Count 589 H 140-450 10^3/uL Mean Platelet Volume 6.3 L 6.9-10.8 fL Neutrophils (%) (Auto) 49.0 37.0-80.0 % Lymphocytes (%) (Auto) 38.9 10.0-50.0 % Monocytes (%) (Auto) 8.3 0.0-12.0 % Eosinophils (%) (Auto) 2.7 0.0-7.0 % Basophils (%) (Auto) 1.1 0.0-2.0 % Neutrophils # (Auto) 2.9 1.6-8.6 10 ^3/uL Lymphocytes # (Auto) 2.3 0.4-5.4 10 ^3/uL Monocytes # (Auto) 0.5 0-1.3 10 ^3/uL Eosinophils # (Auto) 0.2 0-0.8 10 ^3/uL Basophils # (Auto) 0.1 0-0.2 10 ^3/uL Nucleated Red Blood Cells 0.0 % Sodium Level 145 136-145 mmol/L Potassium Level 3.1 L 3.5-5.1 mmol/L Chloride Level 112 H 98-107 mmol/L Carbon Dioxide Level 23 20-31 mmol/L Anion Gap 10 5-15 Blood Urea Nitrogen 11 9-23 mg/dL Creatinine 1.23 H 0.550-1.02 mg/dL Glomerular Filtration Rate Calc 52 >90 mL/min BUN/Creatinine Ratio 8.9 L 10.0-20.0 Serum Glucose 102 74-106 mg/dL Calcium Level 9.6 8.7-10.4 mg/dL Patient alert. Complaining of flank pain. Vitals stable. Answering questions. Has been followed by Dr. Reveles. Urinalysis shows UTI. Establish intravenous access. Was given fluids. Was given Rocephin. Explained to the patient. Continue monitoring. Time of 1ST Reevaluation: 16:30 Reevaluation 1ST: Unchanged Patient Education/Counseling: Diagnosis, Treatment Family Education/Counseling: No Family Present SEPSIS Sepsis Screen Date sepsis recognized/suspect: Jun 06, 2025 Time Sepsis recognized/suspect: 1449 Recent Procedure: No On Antibiotic Therapy: No Respiratory Rate >20: No Heart Rate >90: Yes Temp<36 C (96.8 F) or >38.3 C: No SBP <90 or MAP <65 mmHG: No New Acute Mental Status Change: No Is the patient on CPAP, BIPAP,: No Physician Orders Urine Bacterial Culture (06/06/25 16:30) Vital Signs Date Time Temp Pulse Resp B/P (MAP) Pulse Ox O2 Delivery O2 Flow Rate FiO2 06/06/25 17:04 98.1 105 16 109/72 (84) 97 98.1 06/06/25 14:49 98.5 120 16 131/72 94 98.5 Laboratory Tests Test 06/06/25 15:39 White Blood Count 6.0 10^3/uL (4.4-10.8) Departure 1 Departure Time of Disposition: 17:11 Impression: Primary Impression: Sepsis due to urinary tract infection Disposition: ADMITTED INPATIENT Admit to: Med Surg Condition: Guarded Critical Care Note Critical Care Time?: No Stability Stability form required: No Heart Score Heart Score: Heart Score Response (Comments) Value History N/A 0 EKG N/A 0 Age N/A 0 Risk Factors N/A 0 Troponin N/A 0 Total 0 I personally scribed for JUAN HAMILTON MD ([email or web address]) on 06/06/25 at 17:01. Electronically submitted by Francisca Jacobo ([email or web address]). I personally scribed for JUAN HAMILTON MD ([email or web address]) on 06/06/25 at 17:04. Electronically submitted by Francisca Jacobo ([email or web address]). JUAN HAMILTON MD Jun 06, 2025 17:01
--- NOTE | 2025-06-06 18:42 | DVHINCON2 ---
Date of service: Jun 06, 2025 Referring Physician Seen in clinic 06/04/25 and directed to [facility] for admission for pain control and urological procedure 06/07/25 Reason for Consultation Kidney stones Stent pain History of Present Illness 54 y/o F, with PMHx of UTI's and kidney stones s/p left ESWL and stent placement on 04/26/25. CT Scan 05/21/25 reported 5 cm left perinephric hematoma and residual renal /ureteral stones with left ureteral stent in situ. She was seen in clinic on 06/04/25 for left abdominal pain and referred to be admitted for pain control and additional definitive stone management. Patent states, she was instructed by At this time patient c/o abdominal pain, flank pain, and pain upon urination. Patient denies hematuria, fever, or chills. Chief Complaint: Abdominal Pain Reviewed Notes: Nurses Notes, Medications, Allergies Allergies: Coded Allergies: NO KNOWN ALLERGIES (Unverified , 04/18/25) Home Meds Active Scripts Cephalexin Monohydrate (Cephalexin) 500 Mg Cap, 1 CAP PO TID for 7 Days, #21 CAP Prov:PANKAJ TITUS MD 04/27/25 Hydrocodone-Acetaminophen (Hydrocodone/Acetaminophen 5-325 mg) 1 Tab Tab, 1 TAB PO TIDPRN PRN for 6 Days, #18 TAB Prov:PANKAJ TITUS MD 04/27/25 Tramadol HCl (Tramadol HCl) 50 Mg Tab, 50 MG PO Q12HP PRN for 6 Days, #12 TAB Prov:KAPIL ROTH MD 04/18/25 Reported Medications Topiramate (Topamax) 50 Mg Tab, 1 TAB PO BID, #60 TAB 1 Refill 04/21/25 Hydrocodone-Acetaminophen (Hydrocodone Bitartrate/AC 10-325 mg) 1 Tab Tab, 1 TAB PO Q4HP for PAIN, TAB 04/21/25 Information Source: Patient Mode of Arrival: Ambulatory Severity: Moderate Timing: Days Duration: Since onset Prehospital treatment: None Past Medical History Kidney Stones, UTI'S Past Surgical History Left ESWL and stent placement 04/26/25 Allergies: Coded Allergies: NO KNOWN ALLERGIES (Unverified , 04/18/25) Home Meds Active Scripts Cephalexin Monohydrate (Cephalexin) 500 Mg Cap, 1 CAP PO TID for 7 Days, #21 CAP Prov:PANKAJ TITUS MD 04/27/25 Hydrocodone-Acetaminophen (Hydrocodone/Acetaminophen 5-325 mg) 1 Tab Tab, 1 TAB PO TIDPRN PRN for 6 Days, #18 TAB Prov:PANKAJ TITUS MD 04/27/25 Tramadol HCl (Tramadol HCl) 50 Mg Tab, 50 MG PO Q12HP PRN for 6 Days, #12 TAB Prov:KAPIL ROTH MD 04/18/25 Reported Medications Topiramate (Topamax) 50 Mg Tab, 1 TAB PO BID, #60 TAB 1 Refill 04/21/25 Hydrocodone-Acetaminophen (Hydrocodone Bitartrate/AC 10-325 mg) 1 Tab Tab, 1 TAB PO Q4HP for PAIN, TAB 04/21/25 Review of Systems Constitutional: denies: chills, diaphoresis, fatigue, fever, malaise, sweats, weakness, others EENTM: denies: blurred vision, double vision, ear bleeding, ear discharge, ear drainage, ear pain, ear ringing, eye pain, eye redness, hearing loss, mouth pain, mouth swelling, nasal discharge, nose bleeding, nose congestion, nose pain, photophobia, tearing, throat pain, throat swelling, voice changes, others Respiratory: denies: cough, hemoptysis, orthopnea, SOB at rest, shortness of breath, SOB with excertion, stridor, wheezing, others Cardiovascular: denies: chest pain, dizzy spells, diaphoresis, Dyspnea on exertion, edema, irregular heart beat, left arm pain, lightheadedness, palpitations, PND, syncope, others Gastrointestinal: denies: abdomen distended, abdominal pain, blood streaked bowels, constipated, diarrhea, dysphagia, difficulty swallowing, hematemesis, melena, nausea, poor appetite, poor fluid intake, rectal bleeding, rectal pain, vomiting, others Genitourinary: reports: dysuria, flank pain; denies: abnormal vagina bleeding, burning, dyspareunia, frequency, hematuria, incontinence, pain, , vagina discharge, urgency, others Neurological: denies: dizziness, fainting, headache, left sided numbness, left sided weakness, numbness, paresthesia, pre-existing deficit, right sided num bness, right sided weakness, seizure, speech problems, tingling, tremors, weakness, others Musculoskeletal: denies: back pain, gout, joint pain, joint swelling, muscle pain, muscle stiffness, neck pain, others Integumetry: denies: bruises, change in color, change in hair/nails, dryness, laceration, lesions, lumps, rash, wounds, others Allergic/Immunocompromised: denies: Difficulty Healing, Frequent Infections, Hives, Itching, others Hematologic/Lymphatic: denies: anemia, blood clots, easy bleeding, easy bruising, swollen glands, others Endocrine: denies: excessive hunger, excessive sweating, excessive thirst, excessive urination, flushing, intolerance to cold, intolerance to heat, unexplained weight gain, unexplained weight loss, others Psychiatric: denies: anxiety, bipolar disorder, depression, hopeless, panic disorder, schizophrenia, sleepless, suicidal, others All Other Systems: Reviewed and Negative Vital Signs Vital Signs Date Time Temp Pulse Resp B/P (MAP) Pulse Ox O2 Delivery O2 Flow Rate FiO2 06/06/25 17:04 98.1 105 16 109/72 (84) 97 98.1 Physical Exam General Appearance: Moderate Distress HEENT: Normal ENT Inspection, Pharynx Normal, TMs Normal Neck: Full Range of Motion, Non-Tender, Normal, Normal Inspection Respiratory: Chest Non-Tender, Lungs Clear, No Accessory Muscle Use, No Respiratory Distress, Normal Breath Sounds Cardiovascular: No Edema, No JVD, No Murmur, No Gallop, Normal Peripheral Pulses, Regular Rate/Rhythm Breast Exam: Deferred Gastrointestinal: No Organomegaly, Non Tender, No Pulsatile Mass, Normal Bowel Sounds, Soft Genitalia: Deferred Pelvic: Deferred Rectal: Deferred Extremities: No calf tenderness, Normal capillary refill, Normal inspection, Normal range of motion, Non-tender, No pedal edema Musculoskeletal : Apperance: Normal Neurologic: Alert, traffic signal supervisor maintenance II-XII nml as Tested, No Motor Deficits, Normal Affect, Normal Mood, No Sensory Deficits Cerebellar Function: Normal Reflexes: Normal Skin: Dry, Normal Color, Warm Peripheral Pulses: 3+ Radial (R), 3+ Radial (L) Lymphatic: No Adenopathy Labs/Diagnostic Data Labs Test 06/06/25 15:50 06/06/25 15:39 Range/Units Urine Color Dark-yellow Yellow Urine Clarity Turbid H Clear Urine pH 6.5 5.0-9.0 Urine Specific [place] 1.014 1.001-1.035 Urine Protein 1+ H Negative Urine Ketones Negative Negative Urine Blood 3+ H Negative /uL Urine Nitrite 1+ H Negative Urine Bilirubin 1+ H Negative Urine Urobilinogen 3 H Negative mg/dL Urine Leukocyte Esterase 3+ Negative /uL Urine RBC 584 0 - 4 /hpf Urine Microscopic WBC 38 H 0-5 /HPF Urine Squamous Epithelial Cells Few <5 /hpf Urine Bacteria Few H None Seen /hpf Urine Mucus Few None Seen Urine Glucose Normal Normal mg/dL White Blood Count 6.0 4.4-10.8 10^3/uL Red Blood Count 2.90 L 4.0-5.20 10^6/uL Hemoglobin 9.0 L 12.2-16.2 g/dL Hematocrit 27.4 L 36.0-46.0 % Mean Corpuscular Volume 94.3 80.0-100.0 fL Mean Corpuscular Hemoglobin 31.2 28.0-32.0 pg Mean Corpuscular Hemoglobin Concent 33.0 32.0-36.0 g/dL Red Cell Distribution Width 15.3 H 11.8-14.3 % Platelet Count 589 H 140-450 10^3/uL Mean Platelet Volume 6.3 L 6.9-10.8 fL Neutrophils (%) (Auto) 49.0 37.0-80.0 % Lymphocytes (%) (Auto) 38.9 10.0-50.0 % Monocytes (%) (Auto) 8.3 0.0-12.0 % Eosinophils (%) (Auto) 2.7 0.0-7.0 % Basophils (%) (Auto) 1.1 0.0-2.0 % Neutrophils # (Auto) 2.9 1.6-8.6 10 ^3/uL Lymphocytes # (Auto) 2.3 0.4-5.4 10 ^3/uL Monocytes # (Auto) 0.5 0-1.3 10 ^3/uL Eosinophils # (Auto) 0.2 0-0.8 10 ^3/uL Basophils # (Auto) 0.1 0-0.2 10 ^3/uL Nucleated Red Blood Cells 0.0 % Sodium Level 145 136-145 mmol/L Potassium Level 3.1 L 3.5-5.1 mmol/L Chloride Level 112 H 98-107 mmol/L Carbon Dioxide Level 23 20-31 mmol/L Anion Gap 10 5-15 Blood Urea Nitrogen 11 9-23 mg/dL Creatinine 1.23 H 0.550-1.02 mg/dL Glomerular Filtration Rate Calc 52 >90 mL/min BUN/Creatinine Ratio 8.9 L 10.0-20.0 Serum Glucose 102 74-106 mg/dL Calcium Level 9.6 8.7-10.4 mg/dL Assessment Hematuria Left abdominal pain Left ureteral stent, in situ Left renal stones Left perinephric hematoma, measuring 5.1 cm on recent outside CT Scan on 05/21/25. Plan/Recommendation KUB CT Scan AP NC for evaluation of left perinephric hematoma Pain control NPO after midnight Left URSLL and renal stones evacuation with stent removal Plan discussed with: Patient, Other GABBY MARTEL MD Jun 06, 2025 18:42
--- NOTE | 2025-06-06 19:24 | DVH ---
Date: 06/06/2025 06:53 PM Examination: XY KUB ABDOMEN SINGLE VIEW History: stones and stent COMPARISON: XR ABDOMEN 1 VIEW (KUB) on DOS: 06/02/25, XY KUB ABDOMEN SINGLE VIEW on DOS: 04/26/25 TECHNIQUE: Frontal views of the abdomen was obtained. FINDINGS: Bowel gas pattern is unremarkable. The lung bases are unremarkable. No acute osseous abnormality identified. There is a left-sided ureteral stent. IMPRESSION: 1. Nonobstructive bowel gas pattern.
--- NOTE | 2025-06-06 19:31 | DVH ---
EXAM: CT CT AB PEL WO CON-NO ORAL OR IV History: Left perinephric hematoma Comparison Study: CT CT AB PEL WO CON-NO ORAL OR IV on DOS: 04/18/25, US PELVIC on DOS: 05/27/23 TECHNIQUE: Multidetector CT of the abdomen was performed from lung bases to pubic symphysis. Imaging was performed without IV contrast. Axial, coronal and sagittal multiplanar reformats were obtained from the axial data set by the technologist. Radiation Dose Information: CT Dose: CTDI volume is 5.6 mGy. Dose-length product is 298 mGy*cm FINDINGS: Evaluation of solid organs is limited due to lack of intravenous contrast use. FINDINGS: Lung Bases: No acute or significant lung base finding. Normal heart size. No pleural or pericardial effusion. Liver: The liver is normal in size. Liver cyst unchanged. Gallbladder and Biliary Tree: Unremarkable Spleen: Unremarkable Pancreas: The pancreas is grossly normal in appearance. Adrenal Glands: Unremarkable Kidneys: In the interval there has been placement of a left ureteral stent. The stent appears to be in a lower pole calyx as well as the renal pelvis. There does appear mild worsening of the hydronephrosis within the upper pole. The previously seen calculus within the mid ureter now appears to be present at the left UVJ. Again noted are bilateral tiny nonobstructing renal calculi. Bladder: Grossly unremarkable for degree of distention. Bowel: The stomach is grossly normal in appearance. Small bowel and colon are normal in caliber and distribution. The appendix is not visualized; however, no secondary findings of acute appendicitis identified. Ascites: Absent Lymphadenopathy: No mesenteric, retroperitoneal or periportal lymphadenopathy. Abdominal Wall and Mesentery: Unremarkable. Vasculature: The visualized abdominal aorta is normal in size and caliber. Evaluation of abdominal and pelvic vessels is limited due to lack of intravenous contrast. Pelvic Organs: Unremarkable Musculoskeletal: No aggressive focal bony lesions, acute fractures or dislocation. Soft tissues: Unremarkable IMPRESSION: 1. Interval placement of left ureteral stent which appears to be in a lower pole calyx, there is persistent hydronephrosis with mildly worsening hydronephrosis within the upper pole. Previously seen calculus within the left ureter appears now located at the left UVJ. 2. Tiny bilateral nonobstructing renal calculi. 3. Radiation optimization: All CT scans at this facility use at least one of these dose optimization techniques: automated exposure control mA and/or kV adjustment per patient size (includes targeted exams where dose is matched to clinical indication) or iterative reconstruction.
[2025-06-06] MEDS ORDERED: MORPHINE SULFATE INJ 2 MG/ml SYRG IV PRN (22:15)
[2025-06-06 23:17] LABS: INR 0.96 (0.9-1.15); Partial Thromboplastin Time 30.4 SEC (24.5-34.5); Prothrombin Time 10.2 sec (9.3-11.8)
--- NOTE | 2025-06-06 23:56 | DVHHPRES ---
History of Present Illness Resident Creating Document: VIRGIE HIGGINBOTHAM RESIDENT History of Present Illness Lolis Rodriguez is a 54-year-old female with past medical history of migraine, lumbar and cervical spondylolisthesis who presented to the hospital with complaints of left flank pain since 2 days. She rates the flank pain 10 on 10 in intensity, sharp, radiating to the left lower quadrant of abdomen. She was admitted in the hospital 1 month back for the similar complaints, status post lithotripsy with stent placement. Patient reports that the pain did not subside after the procedure and increased gradually. She also complains of associated dysuria, frequency and burning sensation. She denies any fever, chills or shortness of breath. She was admitted in [place] for the same complaints 2 weeks back, was treated for UTI and discharged. She is scheduled for laser lithotripsy and stent removal by Urologist tomorrow. PMHx:migraine, lumbar and cervical spondylolisthesis PSHx: Tonsillectomy, abdominoplasty Family history: nonrelevant Social history: denies smoking, alcohol or illicit drug use Home medication: topiramate, [place] Allergic history: no known allergies Review of Systems Review of Systems General: patient denies fever, fatigue, weaknes, sweating, any recent changes in appetite and weight HEENT: No headaches, visiual changes, hearing loss, tinnitus, nasal congestion and discharge, and sore throat. Cardiovascular: Denies chest pain, palpitations, dyspnea on exertion, orthopnea, or claudication. Respiratory: No cough, and wheezing. Gastrointestinal: complains of left flank pain Genitourinary: complains of urinary frequency, urgency and burning sensation Endocrine: No heat or cold intolerance, polydipsia, polyuria, and polyphagia. Neurological: No dizziness, extremity weakness and numbness, tremors, gait disturbance, seizures, and memory impairment. Psychiatric: Denies depression, anxiety,or insomnia. Musculoskeletal: Denies neck pain, stiffness and swelling, back pain, muscle weakness, joint pain, stiffness, swelling, or limited range of motion. Skin: No rashes, itching, skin lesion, changes in hair, nail, skin texture and breast. Hematologic/Lymphatic: Denies easy bruising, bleeding tendencies, or lymph node enlargement. Allergies: Coded Allergies: NO KNOWN ALLERGIES (Unverified , 04/18/25) Medications Current Medications Medications Dose Ordered Sig/Pdamini Route Start Time Stop Time Status Last Admin Dose Admin Morphine Sulfate 2 mg Q4HPRN PRN IV 06/06/25 22:15 Topiramate 100 mg Q12HR PO 06/07/25 10:00 Piperacillin Sod/ Tazobactam Sod 100 ml @ 25 mls/hr Q8HR IV 06/06/25 23:00 Linezolid 300 ml @ 150 mls/hr Q12HR IV 06/07/25 10:00 Exam Vital Signs Vital Signs Date Time Temp Pulse Resp B/P (MAP) Pulse Ox O2 Delivery O2 Flow Rate FiO2 06/06/25 23:33 88 18 110/70 (83) 97 06/06/25 23:33 Room Air* 0 21 06/06/25 20:08 98.2 98.2 Exam General Appearance: Alert, Oriented X3, Cooperative, No acute distress HEENT: Atraumatic, PERRLA, EOMI, Mucous membrane moist/pink Respiratory: Clear to auscultation, Normal air movement Cardiovascular: Regular rate, Normal S1, Normal S2, No murmurs, no chest wall tenderness Abdominal: tenderness in the left flank, left lower quadrant tenderness Extremities: No clubbing, No cyanosis, No edema, Normal pulses, No tenderness/swelling Skin: No rashes, No breakdown, No significant lesion Neuro: Normal gait, Normal speech, Strength at 5/5 X4 ext, Normal tone, Sensation intact, Cranial nerves 3-12 NL, Reflexes 2+ Psych/Mental Status: Mental status NL, Mood NL Labs/Xrays Labs Test 06/06/25 22:23 06/06/25 15:50 06/06/25 15:39 Range/Units Prothrombin Time 10.2 9.3-11.8 sec Prothrombin Time INR 0.96 0.9-1.15 Activated Partial Thromboplast Time 30.4 24.5-34.5 SEC Magnesium Level 2.2 1.6-2.6 mg/dL Thyroid Stimulating Hormone (TSH) 1.58 0.55-4.78 uIU/mL Urine Color Dark-yellow Yellow Urine Clarity Turbid H Clear Urine pH 6.5 5.0-9.0 Urine Specific [place] 1.014 1.001-1.035 Urine Protein 1+ H Negative Urine Ketones Negative Negative Urine Blood 3+ H Negative /uL Urine Nitrite 1+ H Negative Urine Bilirubin 1+ H Negative Urine Urobilinogen 3 H Negative mg/dL Urine Leukocyte Esterase 3+ Negative /uL Urine RBC 584 0 - 4 /hpf Urine Microscopic WBC 38 H 0-5 /HPF Urine Squamous Epithelial Cells Few <5 /hpf Urine Bacteria Few H None Seen /hpf Urine Mucus Few None Seen Urine Glucose Normal Normal mg/dL White Blood Count 6.0 4.4-10.8 10^3/uL Red Blood Count 2.90 L 4.0-5.20 10^6/uL Hemoglobin 9.0 L 12.2-16.2 g/dL Hematocrit 27.4 L 36.0-46.0 % Mean Corpuscular Volume 94.3 80.0-100.0 fL Mean Corpuscular Hemoglobin 31.2 28.0-32.0 pg Mean Corpuscular Hemoglobin Concent 33.0 32.0-36.0 g/dL Red Cell Distribution Width 15.3 H 11.8-14.3 % Platelet Count 589 H 140-450 10^3/uL Mean Platelet Volume 6.3 L 6.9-10.8 fL Neutrophils (%) (Auto) 49.0 37.0-80.0 % Lymphocytes (%) (Auto) 38.9 10.0-50.0 % Monocytes (%) (Auto) 8.3 0.0-12.0 % Eosinophils (%) (Auto) 2.7 0.0-7.0 % Basophils (%) (Auto) 1.1 0.0-2.0 % Neutrophils # (Auto) 2.9 1.6-8.6 10 ^3/uL Lymphocytes # (Auto) 2.3 0.4-5.4 10 ^3/uL Monocytes # (Auto) 0.5 0-1.3 10 ^3/uL Eosinophils # (Auto) 0.2 0-0.8 10 ^3/uL Basophils # (Auto) 0.1 0-0.2 10 ^3/uL Nucleated Red Blood Cells 0.0 % Sodium Level 145 136-145 mmol/L Potassium Level 3.1 L 3.5-5.1 mmol/L Chloride Level 112 H 98-107 mmol/L Carbon Dioxide Level 23 20-31 mmol/L Anion Gap 10 5-15 Blood Urea Nitrogen 11 9-23 mg/dL Creatinine 1.23 H 0.550-1.02 mg/dL Glomerular Filtration Rate Calc 52 >90 mL/min BUN/Creatinine Ratio 8.9 L 10.0-20.0 Serum Glucose 102 74-106 mg/dL Calcium Level 9.6 8.7-10.4 mg/dL SEPSIS Sepsis Screen Date sepsis recognized/suspect: Jun 06, 2025 Time Sepsis recognized/suspect: 1448 Recent Procedure: No On Antibiotic Therapy: No Respiratory Rate >20: No Heart Rate >90: Yes Temp<36 C (96.8 F) or >38.3 C: No SBP <90 or MAP <65 mmHG: No New Acute Mental Status Change: No Is the patient on CPAP, BIPAP,: No Physician Orders Urine Bacterial Culture (06/06/25 16:30) Kub Abdomen Single View (06/06/25 18:23) Npo After Midnight (06/06/25 18:23) Npo (Nothing By Mouth) Diet (06/07/25 Breakfast) Obtain Consent For: (06/06/25 18:23) Ct Ab Pel Wo Con-No Oral Or Iv (06/06/25 18:40) Admit (06/06/25 22:05) Allergies (06/06/25 22:05) Code Status (06/06/25 22:05) Complete Blood Count (06/07/25 04:00) Comprehensive Metabolic Panel (06/07/25 04:00) Condition: Fair (06/06/25 22:05) Morphine Sulfate Injection (06/06/25 22:15) Topiramate (Topamax) (06/07/25 10:00) Drug Screen (06/06/25 22:12) Urine (06/06/25 ) Blood Culture (06/06/25 22:12) Potassium Chloride (Potassium Chloride). (06/06/25 22:15) Vitamin B12 (06/06/25 22:16) Folate (Folic Acid) (06/06/25 22:16) * Urology Consult (06/06/25 22:17) Piperacillin-Tazob 3.375gm (Zosyn 3.375g (06/06/25 23:00) Linezolid 600mg/300ml (Zyvox) (06/07/25 10:00) Vital Signs Date Time Temp Pulse Resp B/P (MAP) Pulse Ox O2 Delivery O2 Flow Rate FiO2 06/06/25 23:33 88 18 110/70 (83) 97 06/06/25 23:33 Room Air* 0 21 06/06/25 20:08 98.2 79 16 120/81 (94) 99 98.2 06/06/25 17:04 98.1 105 16 109/72 (84) 97 98.1 Laboratory Tests Test 06/06/25 15:39 White Blood Count 6.0 10^3/uL (4.4-10.8) Medications Medications Dose Ordered Sig/Padmini Route Start Time Stop Time Status Last Admin Dose Admin Ceftriaxone Sodium 50 ml @ 100 mls/hr ONCE ONCE IV 06/06/25 16:30 06/06/25 16:59 DC 06/06/25 17:16 100 MLS/HR Assessment/Plan Assessment/Plan Assessment and plan Acute intractable abdominal pain due to ureteral colic with hydronephrosis Hydronephrosis due to above Acute obstructive nephropathy Acute complicated UTI due to above CARSON on CKD due to VMN History of lithotripsy with stent placement IV Zosyn IV linezolid Urine culture, blood culture Urology consult morphine preop chest x-ray, PTPTT NPO Hypokalemia Potassium 3.1 Replenished follow magnesium levels Normocytic anemia Follow hemoglobin levels Chronic migraine Continue topiramate Chronic lumbar and cervical spondylolisthesis Continue [place] Follow up with PCP on discharge PUD prophylaxis: not needed DVT prophylaxis: Ambulatory. Barriers to discharge: Medical diagnosis and management in progress. Patient lives with family. Independent for ADL. PCP: Dr. Cordova Specialist Relevent To Admission: Dr. Reveles Case discussed with . Code Status: Full Code. Complex patient care discussion needed. Spend total 33 minutes for bedside assessment, case discussion and management. Plan discussed with: Patient My Orders Orders - VIRGIE HIGGINBOTHAM RESIDENT Procedure Category Date Status Time Admit ADMIT 06/06/25 Transmitted 22:05 Allergies DAIANA 06/06/25 In Process 22:05 Code Status CODE 06/06/25 Transmitted 22:05 Complete Blood Count LAB 06/07/25 Verified 04:00 Comprehensive LAB 06/07/25 Verified Metabolic Panel 04:00 Condition: Fair DAIANA 06/06/25 In Process 22:05 Morphine Sulfate PHA 06/06/25 In Process Injection 22:15 Topiramate (Topamax) PHA 06/07/25 In Process 10:00 Drug Screen LAB 06/06/25 Logged 22:12 Urine ED NURSING 06/06/25 Transmitted Blood Culture SAY 06/06/25 In Process 22:12 Potassium Chloride PHA 06/06/25 In Process (Potassium Chloride). 22:15 Vitamin B12 LAB 06/06/25 In Process 22:16 Folate (Folic Acid) LAB 06/06/25 In Process 22:16 * Urology Consult CONS 06/06/25 Transmitted 22:17 Piperacillin-Tazob PHA 06/06/25 In Process 3.375gm (Zosyn 3.375g 23:00 Linezolid 600mg/300ml PHA 06/07/25 In Process (Zyvox) 10:00 Visit Coding STANDARD RES Billing Provider: LYNDSAY MCKEON MD Date of Service if different f: Jun 06, 2025 Common Visit Codes: 64742-[id number] INP/OBS CARE (HIGH) Secondary Visit Codes: 59357-KPOQSGNV CARE PLAN 30 MINUTES VIRGIE HIGGINBOTHAM RESIDENT Jun 06, 2025 23:56
[2025-06-07] VITALS (10 sets, daily range): BP systolic 110–143; BP diastolic 67–91; PULSE 16–98; RESP 13–18; TEMP 97.5–98.2; O2SAT 95–100
[2025-06-07] MEDS: MORPHINE SULFATE 4 MG/ML SYR/VIAL IV PRN (00:23)
[2025-06-07] MEDS: PIPERACILLIN-TAZOB 3.375GM 100 ML IV SCH (00:24)
[2025-06-07] MEDS: POTASSIUM CHLORIDE 60 MEQ, LIDOCAINE 1% (LOCAL ANESTH.) 6 ML in SODIUM CHL 0.9% 500 ML IV ONE (01:03)
[2025-06-07] MEDS ORDERED: TAMS0.4C39 PO (02:14)
[2025-06-07] MEDS ORDERED: TOPI100T68 PO (02:14)
[2025-06-07] MEDS ORDERED: PHEN-1044 PO (02:14)
[2025-06-07] MEDS ORDERED: IBUP-1455 PO (02:14)
[2025-06-07] MEDS ORDERED: AMOX500C2 PO (02:14)
[2025-06-07] MEDS ORDERED: PREG50CA80 PO (02:14)
[2025-06-07] MEDS ORDERED: HYDR-4072 PO (02:15)
[2025-06-07] MEDS: POTASSIUM CHL 20MEQ/100ML 100 ML IV ONE (02:42)
--- NOTE | 2025-06-07 05:37 | DVH ---
CHEST RADIOGRAPH INDICATION: Procedure TECHNIQUE: Single frontal view of the chest was obtained COMPARISON: XY CHEST PORTABLE on DOS: 04/26/25. FINDINGS: Lines and Tubes: None Lungs: No focal consolidation. Pleura: No effusion. No pneumothorax. Cardiomediastinal contours: Unremarkable Bones: No acute osseous abnormality. IMPRESSION: 1. No acute cardiopulmonary disease.
[2025-06-07 06:24] LABS: Hematocrit 26.7 % (36.0-46.0); Hemoglobin 8.8 g/dL (12.2-16.2); Mean Corpuscular Hemoglobin 31.3 pg (28.0-32.0); Mean Corpuscular Volume 95.4 fL (80.0-100.0); Nucleated Red Blood Cells % 0.0 %
[2025-06-07 06:47] LABS: Alanine Aminotransferase 13 U/L (7-40); Albumin 3.8 g/dL (3.2-4.8); Alkaline Phosphatase 69 U/L (46-116); Anion Gap 9 (5-15); BUN/Creatinine Ratio 15.2 (10.0-20.0); Blood Urea Nitrogen 15 mg/dL (9-23); Calcium 9.0 mg/dL (8.7-10.4); Carbon Dioxide 25 mmol/L (20-31); Glucose 88 mg/dL (74-106); Potassium 4.3 mmol/L (3.5-5.1); Total Protein 6.0 g/dL (5.7-8.2)
[2025-06-07 06:48] LABS: Bilirubin, Total 0.3 mg/dL (0.2-1.0); Chloride 113 mmol/L (98-107); Sodium 147 mmol/L (136-145)
[2025-06-07] MEDS: TOPIRAMATE 100 MG TAB PO SCH (09:49)
[2025-06-07] MEDS: LINEZOLID 600MG/300ML 300 ML IV SCH (09:49)
[2025-06-07] MEDS: HYDROmorphone HCL 2 MG/ML VL/or syr IV PRN (13:33)
[2025-06-07] MEDS ORDERED: KETOROLAC TROMETH 30 MG/ML 1ML VIAL IV ONE (14:45)
[2025-06-07] MEDS ORDERED: METOCLOPRAMIDE HCL 5MG/ml INJ 2ml VIAL IV PRN (14:45)
[2025-06-07] MEDS ORDERED: HYDROmorphone HCL 2 MG/ML VL/or syr IV PRN ×2 (14:45)
[2025-06-07] MEDS ORDERED: MORPHINE SULFATE 4 MG/ML SYR/VIAL IV PRN ×2 (14:45→15:00)
--- NOTE | 2025-06-07 15:17 | DVHPNRES ---
Progress Note Date Seen: Jun 07, 2025 Resident Creating Document: ADRIANE TROTTER RESIDENT Medical Necessity Reason Pt with a Central, PICC or Fol: No Subjective Patient reports: No new complaints Objective vital signs Vital Sign Date Time Temp Pulse Resp B/P (MAP) Pulse Ox O2 Delivery O2 Flow Rate FiO2 06/07/25 13:33 80 16 116/78 06/07/25 12:38 98.2 96 98.2 06/07/25 08:00 Room Air* 0 21 Total Intake and Output 06/06/25 06/06/25 06/07/25 15:00 23:00 07:00 Intake Total 50 ml 150 ml Balance 50 ml 150 ml medications Current Medications Medications Dose Ordered Sig/Padmini Route Start Time Stop Time Status Last Admin Dose Admin Topiramate 100 mg Q12HR PO 06/07/25 10:00 06/07/25 09:49 100 MG Piperacillin Sod/ Tazobactam Sod 100 ml @ 25 mls/hr Q8HR IV 06/06/25 23:00 06/07/25 05:36 25 MLS/HR Linezolid 300 ml @ 150 mls/hr Q12HR IV 06/07/25 10:00 06/07/25 09:49 150 MLS/HR Hydromorphone HCl 0.25 mg Q4HPRN PRN IV 06/07/25 12:15 06/07/25 13:33 0.25 MG Hydromorphone HCl 0.5 mg Q10M PRN IV 06/07/25 14:45 06/07/25 15:26 Morphine Sulfate 2 mg Q4H PRN IV 06/07/25 14:45 06/07/25 18:46 Hydromorphone HCl 0.25 mg Q10M PRN IV 06/07/25 14:45 06/07/25 15:16 Morphine Sulfate 1 mg Q30M PRN IV 06/07/25 15:00 06/07/25 17:01 Examination General Appearance: Alert, Oriented X3, Cooperative, No acute distress HEENT: Atraumatic, PERRLA, EOMI, Mucous membrane moist/pink Respiratory: Clear to auscultation, Normal air movement Cardiovascular: Regular rate, Normal S1, Normal S2, No murmurs, no chest wall tenderness Abdominal: tenderness in the left flank, left lower quadrant tenderness Extremities: No clubbing, No cyanosis, No edema, Normal pulses, No tenderness/swelling Skin: No rashes, No breakdown, No significant lesion Neuro: Normal gait, Normal speech, Strength at 5/5 X4 ext, Normal tone, Sensation intact, Cranial nerves 3-12 NL, Reflexes 2+ Psych/Mental Status: Mental status NL, Mood NL laboratory and microbiology Laboratory Tests 06/07/25 05:15 Test 06/07/25 05:15 Range/Units Serum Glucose 88 74-106 mg/dL Microbiology Date/Time Source Procedure Growth Status 06/06/25 15:50 Voided Urine Urine Culture - Preliminary No growth Resulted Labs and/or images reviewed: Labs reviewed by me, Image(s) reviewed by me Problem List/Assessment/Plan Problem List/Assessment/Plan Lolis Rodriguez is a 54-year-old female with a history of migraine and lumbar/cervical spondylolisthesis who presents with severe left flank pain for 2 days, rated 10/10, sharp, and radiating to the left lower quadrant. She reports dysuria, urinary frequency, and burning sensation but denies fever, chills, or shortness of breath. She was hospitalized one month ago for similar symptoms and underwent lithotripsy with stent placement; pain persisted and worsened since then. Two weeks ago, she was treated for UTI at [place] and discharged. She is scheduled for laser lithotripsy and stent removal today 06/[address] Reveles. Assessment: #Acute intractable abdominal renal colic, hemodynamically stable. #Ureteral stent and stones with hydronephrosis, left. 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 #Chronic migraine #Chronic lumbar and cervical spondylolisthesis # ruled out. #Reactive thrombocytosis Plan: #NPO, resume regular diet after procedure. #Continue LR at 100cc / hour, Continue topiramate, multimodal pain management. #Agree with Linezolid and Zosyn for MRSA and gram -ve empiric coverage for recent urinary tract instrumentation. close follow up of platelets. #Trend CBC and BMP, iron panel and ferritin #Check UDS, Urine culture, blood culture #Urology consult, appreciate input #Continue care at [facility], likely discharge tomorrow with abx, and follow up with Dr. Reveles and PCP. Goals of care discussed with the patient for more than 33 minutes. Case discussed with the Dr. Brasher. Plan discussed with: Patient My Orders My Orders Orders - ADRIANE TROTTER Procedure Category Date Status Time Iron Panel LAB 06/07/25 In Process 15:04 Ferritin LAB 06/07/25 In Process 15:04 Complete Blood Count LAB 06/08/25 Verified 04:00 Basic Metabolic Panel LAB 06/08/25 Verified 04:00 Lactated Ringers Lr PHA 06/07/25 Verified 15:15 Date of Service: Jun 07, 2025 Billing Provider: LORENZO BRASHER MD Common Visit Codes: [id number] INP/OBS CARE(HIGH) ADRIANE TROTTER Jun 07, 2025 15:17 LORENZO BRASHER MD Jun 08, 2025 00:35
[2025-06-07] MEDS ORDERED: ONDANSETRON HCL 4 MG/2 ML VIAL ONE (15:26)
[2025-06-07] MEDS ORDERED: KETAMINE 50mg/ML 1ml syringe ONE (15:26)
[2025-06-07] MEDS ORDERED: MIDAZOLAM HCL 2MG/2ML 2ml VIAL (1mg/ml) ONE (15:26)
[2025-06-07] MEDS ORDERED: fentaNYL CITRATE 100 MCG/2 ML VL ONE (15:26)
[2025-06-07] MEDS ORDERED: SODIUM CHLORIDE LOCK 10 ML ONE (15:26)
[2025-06-07] MEDS ORDERED: PROPOFOL 10 MG/ML 20 ML IV ONE (15:26)
[2025-06-07] MEDS ORDERED: LIDOCAINE HCL 2% TOP JELLY 5ML TOP ONE (15:26)
[2025-06-07] MEDS ORDERED: MEPERIDINE HCL (25 MG/ML) 1ML VIAL ONE (15:26)
[2025-06-07] MEDS ORDERED: LIDOCAINE 1% INJ PF 5ML AMP ONE (15:26)
[2025-06-07] MEDS ORDERED: IOHEXOL 300 MG/ML 100ML BOTTLE IJ ONE (16:26)
[2025-06-07 16:30] LABS: Iron 52.0 ug/dL (50-170)
[2025-06-07 16:32] LABS: Total Iron Binding Capacity 277.0 ug/dL (250-425)
[2025-06-07] MEDS ORDERED: LIDOCAINE 2% JELLY 11ml (GLYDO) ONE (17:06)
--- NOTE | 2025-06-07 17:11 | DVHNC2 ---
Procedure - OPERATIVE REPORT Pre-op. Diagnosis: Left ureteral stent, in-situ left nephrolithiasis and left ureteral calculi Post-op. Diagnosis: Same as pre-op diagnosis Operation: Left ureteroscopy/pyeloscopy, laser lithotripsy with renal evacuation Cystoscopy with left ureteral stent removed Anesthesia: General Indications: Patient with multiple residual 2-3 mm urolithiasis along the ureter and in the renal pelvis following recent stent placement and ESWL. The indications, risks, complications, alternatives and benefits were discussed. All questions were encouraged and answered. Patient is aware of risks/complications including but not limited to infection, bleeding, persistent pain, possible ureteral injury/ureteral stricture requiring additional surgical management, urethral injury, urethral stricture and meatal stenosis. Details of Procedure: After obtaining the consent, patient was taken to OR suite and underwent general anesthesia. Preop antibiotic was given. Timeout was performed and deemed to be correct. With the patient positioned in the lithotomy, the area of the genitalia prepped and draped in usual sterile fashion. 22 F Cystoscope was used to access the urethra and bladder. The left ureteral stent was grasped and removed. One of the distal ureteral calculus fell out along with the stent and was collected and sent to pathology for evaluation. The stone was approximately 3-4 mm size. A sensor tip guide wire was advanced through the scope into the left ureter all the way to the left collecting system under fluoroscopic control. I advanced 12x14 Fr 36 cm access sheet over the working wire all the way to the proximal ureter under fluoroscopy control, then the inner sheet and the working wire was removed. The Digital flexible ureteroscope( Calyxo) was advanced through the access sheet. The stones were visualized. Now using a 200 micron laser fiber the stone was blasted into small fragments and suctioned out while in dusting mode. Ureteroscope was then removed and guidewire also removed. Bladder was decompressed with Cantu catheter. Patient was placed in supine position in the OR table. Anesthesia was reversed, patient was extubated and transferred awake and in stable conditions to recovery room. Specimens: renal stone fragments Complications: None GABBY MARTEL MD Jun 07, 2025 17:11
[2025-06-07] MEDS: LACTATED RINGER'S 1,000 ML IV SCH (18:00)
--- NOTE | 2025-06-07 18:48 | DVH ---
C-ARM FLUOROSCOPY: PROCEDURE: Left side of the laser lithotripsy FLUOROSCOPY TIME: 26.7 seconds Air Kerma: 4.39 mgy FINDINGS: Spot intraoperative C arm radiographs demonstrating received only the dose summary sheet no images of the procedure.. IMPRESSION: 1. Please refer to surgical report for detailed findings.
--- NOTE | 2025-06-07 18:52 | DVH ---
Date: 06/07/2025 04:45 PM Examination: XY KUB ABDOMEN SINGLE VIEW History: LEFT LASER LITHOTRIPSY COMPARISON: XY KUB ABDOMEN SINGLE VIEW on DOS: 06/06/25, XR ABDOMEN 1 VIEW (KUB) on DOS: 06/02/25, XY KUB ABDOMEN SINGLE VIEW on DOS: 04/26/25 TECHNIQUE: Frontal views of the abdomen was obtained. FINDINGS: 7 images received of the procedure. Fluoro time 26.7 seconds Cumulative dose: 4.39 mGy IMPRESSION: 1. Nonobstructive bowel gas pattern.
[2025-06-07] MEDS: MORPHINE SULFATE INJ 2 MG/ml SYRG IV ONE (20:15)
[2025-06-08] VITALS (8 sets, daily range): BP systolic 100–125; BP diastolic 57–86; PULSE 84–96; RESP 16–20; TEMP 97.1–98.9; O2SAT 94–98
[2025-06-08 07:50] LABS: Hematocrit 33.3 % (36.0-46.0); Hemoglobin 10.7 g/dL (12.2-16.2); Mean Corpuscular Hemoglobin 30.7 pg (28.0-32.0); Mean Corpuscular Volume 95.2 fL (80.0-100.0); Nucleated Red Blood Cells % 0.0 %
[2025-06-08 07:58] LABS: Calcium 9.7 mg/dL (8.7-10.4)
[2025-06-08 07:59] LABS: Anion Gap 12 (5-15); Carbon Dioxide 24 mmol/L (20-31); Potassium 3.6 mmol/L (3.5-5.1); Sodium 144 mmol/L (136-145)
[2025-06-08 08:02] LABS: Chloride 108 mmol/L (98-107)
[2025-06-08 08:04] LABS: BUN/Creatinine Ratio 7.5 (10.0-20.0); Blood Urea Nitrogen 9 mg/dL (9-23); Glucose 109 mg/dL (74-106)
[2025-06-08] MEDS ORDERED: HYDR-4072 PO (12:22)
[2025-06-08] MEDS ORDERED: LINE1TAB6 PO (12:22)
[2025-06-08] MEDS ORDERED: POLYETHYLENE GLYCOL 17 GM PWDR PO PRN (16:30)
[2025-06-08] MEDS ORDERED: LACTATED RINGER'S 550 ML IV ONE (16:30)
[2025-06-08] MEDS ORDERED: DOCUSATE SOD 100 MG CAP PO PRN (16:45)
[2025-06-08] MEDS: POLYETHYLENE GLYCOL 17 GM PWDR PO ONE (17:34)
--- NOTE | 2025-06-08 19:00 | DVHPNRES ---
Progress Note Date Seen: Jun 08, 2025 Resident Creating Document: SHEBA BETTENCOURT RESIDENT Medical Necessity Reason Pt with a Central, PICC or Fol: No Subjective Review of Systems ROS: 06/08/2025: Patient was seen and examined by me at the bedside. Patient reports that overnight she had a lot of pain in her back and left lower quadrant. She reports feeling better after Dilaudid and rates the pain as 4/10 today morning. On inquiry, patient states that she has slight burning micturition after Cantu's catheter was removed, as per Dr. Reveles's orders, denies dysuria, frequency. Patient also reports of constipation since hospitalization. Objective vital signs Vital Sign Date Time Temp Pulse Resp B/P (MAP) Pulse Ox O2 Delivery O2 Flow Rate FiO2 06/08/25 17:26 75 18 119/62 06/08/25 17:01 98.2 97 98.2 06/08/25 08:00 Room Air* 0 21 Total Intake and Output 06/07/25 06/07/25 06/08/25 15:00 23:00 07:00 Intake Total 0 ml 800 ml Output Total 900 ml Balance 0 ml -100 ml medications Current Medications Medications Dose Ordered Sig/Padmini Route Start Time Stop Time Status Last Admin Dose Admin Topiramate 100 mg Q12HR PO 06/07/25 10:00 06/08/25 10:07 100 MG Piperacillin Sod/ Tazobactam Sod 100 ml @ 25 mls/hr Q8HR IV 06/06/25 23:00 06/08/25 14:21 25 MLS/HR Linezolid 300 ml @ 150 mls/hr Q12HR IV 06/07/25 10:00 06/08/25 10:08 150 MLS/HR Hydromorphone HCl 0.25 mg Q4HPRN PRN IV 06/07/25 12:15 06/08/25 17:26 0.25 MG Lactated Ringer's 1,000 ml @ 100 mls/hr Q10H IV 06/07/25 15:15 06/07/25 18:00 100 MLS/HR Polyethylene Glycol 17 gm DAILYPRN PRN PO 06/08/25 16:30 Docusate Sodium 100 mg DAILYPRN PRN PO 06/08/25 16:45 Examination Patient is Lying down in bed General Appearance: Alert, Oriented X3, Cooperative, No acute distress HEENT: Atraumatic, PERRLA, EOMI, Mucous membrane moist/pink Respiratory: Clear to auscultation, Normal air movement Cardiovascular: Regular rate, Normal S1, Normal S2, No murmurs, no chest wall tenderness Abdominal: tenderness in the left flank, left lower quadrant tenderness Extremities: No clubbing, No cyanosis, No edema, Normal pulses, No tenderness/swelling Skin: No rashes, No breakdown, No significant lesion Neuro: Normal gait, Normal speech, Strength at 5/5 X4 ext, Normal tone, Sensation intact, Cranial nerves 3-12 NL, Reflexes 2+ Psych/Mental Status: Mental status NL, Mood NL laboratory and microbiology Laboratory Tests 06/08/25 06:33 Test 06/08/25 06:33 Range/Units Serum Glucose 109 H 74-106 mg/dL Microbiology Date/Time Source Procedure Growth Status 06/06/25 22:27 Blood Blood Culture - Preliminary NO GROWTH AFTER 24 HOURS OF INCUBATION. Resulted 06/06/25 15:50 Voided Urine Urine Culture - Preliminary No growth Resulted Labs and/or images reviewed: Labs reviewed by me, Image(s) reviewed by me Problem List/Assessment/Plan Problem List/Assessment/Plan Lolis Rodriguez is a 54-year-old female with a history of migraine and lumbar/cervical spondylolisthesis who presents with severe left flank pain for 2 days, rated 10/10, sharp, and radiating to the left lower quadrant. She reports dysuria, urinary frequency, and burning sensation but denies fever, chills, or shortness of breath. She was hospitalized one month ago for similar symptoms and underwent lithotripsy with stent placement; pain persisted and worsened since then. Two weeks ago, she was treated for UTI at [place] and discharged. She is scheduled for laser lithotripsy and stent removal today 06/[address] Reveles. Assessment: #Acute intractable abdominal renal colic, hemodynamically stable. 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 #Chronic migraine #Chronic lumbar and cervical spondylolisthesis # ruled out. #Reactive thrombocytosis Plan: #Continue LR at 100cc/ hour, Continue topiramate, multimodal pain management. #Linezolid(day2) and Zosyn (day3) for MRSA and gram -ve empiric coverage for recent urinary tract instrumentation. close follow up of platelets. #Trend CBC and BMP, iron panel and ferritin w.n.l #Check UDS, Urine culture preliminary negative, blood culture preliminary negative #pain management with IV Dilaudid 0.25 mg q.4 PRN #Docusate 100 mg p.o. daily PRN, MiraLAX 17 g PO daily prn for constipation #Continue care at [facility], likely discharge tomorrow with abx, and follow up with Dr. Reveles and PCP. Goals of care discussed with the patient for more than 33 minutes. Case discussed with the Dr. Brasher. Plan discussed with: Patient, Other My Orders My Orders Orders - SHEBA BETTENCOURT Procedure Category Date Status Time Stone Analysis Urinary LAB 06/08/25 In Process 18:57 Visit Coding STANDARD RES Billing Provider: LORENZO BRASHER MD Date of Service if different f: Jun 08, 2025 Common Visit Codes: [id number] INP/OBS CARE(HIGH) SHEBA BETTENCOURT RESIDENT Jun 08, 2025 19:00 LORENZO BRASHER MD Jun 08, 2025 23:17
[2025-06-09] VITALS (8 sets, daily range): BP systolic 94–123; BP diastolic 57–79; PULSE 81–95; RESP 17–18; TEMP 36.8; O2SAT 93–95
[2025-06-09 05:57] LABS: Hematocrit 26.2 % (36.0-46.0); Hemoglobin 8.8 g/dL (12.2-16.2); Mean Corpuscular Hemoglobin 31.7 pg (28.0-32.0); Mean Corpuscular Volume 94.7 fL (80.0-100.0); Nucleated Red Blood Cells % 0.0 %
[2025-06-09 06:17] LABS: Potassium 3.5 mmol/L (3.5-5.1); Sodium 143 mmol/L (136-145)
[2025-06-09 06:19] LABS: Anion Gap 8 (5-15); Carbon Dioxide 23 mmol/L (20-31); Chloride 112 mmol/L (98-107)
[2025-06-09 06:21] LABS: Calcium 8.7 mg/dL (8.7-10.4)
[2025-06-09 06:24] LABS: BUN/Creatinine Ratio 11.9 (10.0-20.0); Blood Urea Nitrogen 12 mg/dL (9-23); Glucose 97 mg/dL (74-106)
--- NOTE | 2025-06-09 10:17 | MEDREC ---
[facility] Intervention Section I [facility] Intervention: Review courses of therapy (Patient has no history of multidrug-resistant Gram-positive infection, not septic upon admission => no concern for MRSA or VRE. Please consider d/c linezolid as zosyn alone is sufficient for empiric therapy) STEVEN TORRES [facility] RESIDENT Jun 09, 2025 10:17
--- NOTE | 2025-06-09 16:04 | DVHDSRES ---
Discharge Summary Date of Admission Resident Creating Document: SHEBA BETTENCOURT RESIDENT Jun 06, 2025 at 22:05 Date of Discharge: Jun 09, 2025 Admitting Diagnosis Sepsis due to UTI Labs/Diagnostic Data: Laboratory Results Test 06/09/25 05:27 06/08/25 18:57 06/07/25 05:15 06/06/25 22:23 White Blood Count 5.8 10^3/uL (4.4-10.8) Red Blood Count 2.76 10^6/uL (4.0-5.20) Hemoglobin 8.8 g/dL (12.2-16.2) Hematocrit 26.2 % (36.0-46.0) Mean Corpuscular Volume 94.7 fL (80.0-100.0) Mean Corpuscular Hemoglobin 31.7 pg (28.0-32.0) Mean Corpuscular Hemoglobin Concent 33.5 g/dL (32.0-36.0) Red Cell Distribution Width 14.9 % (11.8-14.3) Platelet Count 468 10^3/uL (140-450) Mean Platelet Volume 6.3 fL (6.9-10.8) Neutrophils (%) (Auto) 48.2 % (37.0-80.0) Lymphocytes (%) (Auto) 38.1 % (10.0-50.0) Monocytes (%) (Auto) 8.6 % (0.0-12.0) Eosinophils (%) (Auto) 4.1 % (0.0-7.0) Basophils (%) (Auto) 1.0 % (0.0-2.0) Neutrophils # (Auto) 2.8 10 ^3/uL (1.6-8.6) Lymphocytes # (Auto) 2.2 10 ^3/uL (0.4-5.4) Monocytes # (Auto) 0.5 10 ^3/uL (0-1.3) Eosinophils # (Auto) 0.2 10 ^3/uL (0-0.8) Basophils # (Auto) 0.1 10 ^3/uL (0-0.2) Nucleated Red Blood Cells 0.0 % Sodium Level 143 mmol/L (136-145) Potassium Level 3.5 mmol/L (3.5-5.1) Chloride Level 112 mmol/L (98-107) Carbon Dioxide Level 23 mmol/L (20-31) Anion Gap 8 (5-15) Blood Urea Nitrogen 12 mg/dL (9-23) Creatinine 1.01 mg/dL (0.550-1.02) Glomerular Filtration Rate Calc 66 mL/min (>90) BUN/Creatinine Ratio 11.9 (10.0-20.0) Serum Glucose 97 mg/dL (74-106) Calcium Level 8.7 mg/dL (8.7-10.4) Iron Level 52 ug/dL (50-170) Total Iron Binding Capacity 277 ug/dL (250-425) Percent Iron Saturation 18.8 % (15-50) Ferritin 113.3 ng/mL (10-291) Total Bilirubin 0.3 mg/dL (0.2-1.0) Aspartate Amino Transferase (AST) 15 U/L (13-40) Alanine Aminotransferase (ALT) 13 U/L (7-40) Alkaline Phosphatase 69 U/L (46-116) Total Protein 6.0 g/dL (5.7-8.2) Albumin 3.8 g/dL (3.2-4.8) Beta HCG, Quantitative 3.5 mIU/mL (1.5-4.2) Prothrombin Time 10.2 sec (9.3-11.8) Prothrombin Time INR 0.96 (0.9-1.15) Activated Partial Thromboplast Time 30.4 SEC (24.5-34.5) Magnesium Level 2.2 mg/dL (1.6-2.6) Vitamin B12 Level 1012 pg/mL (211-911) Folic Acid 40.43 ng/mL (>5.38) Thyroid Stimulating Hormone (TSH) 1.58 uIU/mL (0.55-4.78) Test 06/06/25 15:50 Urine Color Dark-yellow (Yellow) Urine Clarity Turbid (Clear) Urine pH 6.5 (5.0-9.0) Urine Specific [place] 1.014 (1.001-1.035) Urine Protein 1+ (Negative) Urine Ketones Negative (Negative) Urine Blood 3+ /uL (Negative) Urine Nitrite 1+ (Negative) Urine Bilirubin 1+ (Negative) Urine Urobilinogen 3 mg/dL (Negative) Urine Leukocyte Esterase 3+ /uL (Negative) Urine RBC 584 /hpf (0 - 4) Urine Microscopic WBC 38 /HPF (0-5) Urine Squamous Epithelial Cells Few /hpf (<5) Urine Bacteria Few /hpf (None Seen) Urine Mucus Few (None Seen) Urine Glucose Normal mg/dL (Normal) Other Laboratory Tests 06/09/25 05:27 Brief Hx & Hospital Course: Lolis Rodriguez is a 54-year-old female with a history of migraine and lumbar/cervical spondylolisthesis who presented with severe left flank pain, dysuria, urinary frequency, and burning sensation but denies fever, chills, or shortness of breath for 2 days. She was hospitalized one month ago for similar symptoms and underwent lithotripsy with stent placement; pain persisted and worsened since then. Two weeks ago, she was treated for UTI at [place] and discharged. On presentation patient was septic and we started her on fluids. Urine analysis showed UTI and we started her on antibiotics Zocyn and linezolid. We managed her pain with IV dilaudid 0.25mg q4 prn and imaging was done. Urology was on board and patient underwent Left ureteroscopic laser lithotripsy with renal evacuation with CVAC, left ureteral stent removal. Since the procedure, patient has been doing well and is no longer septic. She reports her pain being controlled and is stable. We are discharging her and all questions and queries have been answered. Patient is to follow-up with PCP in 10 days and dc clinic within 7 days. General Appearance: Alert, Oriented X3, Cooperative, No acute distress HEENT: Atraumatic, PERRLA, EOMI, Mucous membrane moist/pink Respiratory: Clear to auscultation, Normal air movement Cardiovascular: Regular rate, Normal S1, Normal S2, No murmurs, no chest wall tenderness Abdominal: mild tenderness in the left flank, mild left lower quadrant tenderness Extremities: No clubbing, No cyanosis, No edema, Normal pulses, No tenderness/swelling Skin: No rashes, No breakdown, No significant lesion Neuro: Normal gait, Normal speech, Strength at 5/5 X4 ext, Normal tone, Sensation intact, Cranial nerves 3-12 NL, Reflexes 2+ Psych/Mental Status: Mental status NL, Mood NL Operations or Procedures ORDERING PHYSICIAN: GABBY MARTEL MD PROCEDURE(s): KUB - KUB ABDOMEN SINGLE VIEW REASON: stones and stent ORDER NUMBER(s): [id number], ACCESSION NUMBER(s): [id number] Date: 06/06/2025 06:53 PM Examination: XY KUB ABDOMEN SINGLE VIEW History: stones and stent IMPRESSION: Nonobsructive bowel gas pattern. EXAM: CT CT AB PEL WO CON-NO ORAL OR IV History: Left perinephric hematoma Comparison Study: CT CT AB PEL WO CON-NO ORAL OR IV on DOS: 04/18/25, US PELVIC on DOS: 05/27/23 IMPRESSION: 1. Interval placement of left ureteral stent which appears to be in a lower pole calyx, there is persistent hydronephrosis with mildly worsening hydronephrosis within the upper pole. Previously seen calculus within the left ureter appears now located at the left UVJ. 2. Tiny bilateral nonobstructing renal calculi. 3. Radiation optimization: All CT scans at this facility use at least one of these dose optimization techniques: automated exposure control mA and/or kV adjustment per patient size (includes targeted exams where dose is matched to clinical indication) or iterative reconstruction. CHEST RADIOGRAPH INDICATION: Procedure IMPRESSION: No acute cardiopulmonary disease. C-ARM FLUOROSCOPY: PROCEDURE: Left side of the laser lithotripsy IMPRESSION: Please refer to surgical report for detailed findings. Examination: XY KUB ABDOMEN SINGLE VIEW History: LEFT LASER LITHOTRIPSY IMPRESSION: Nonobstructive bowel gas pattern. Condition at Discharge: Stable Final Diagnosis/Problems List #Acute intractable abdominal renal colic, hemodynamically stable. 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 #Chronic migraine #Chronic lumbar and cervical spondylolisthesis # ruled out. #Reactive thrombocytosis Discharge Disposition: Home Discharge Instruct/Medications Diet: Consistent carbohydrate, Cardiac 2g Na,low cholest, Renal Diet comment: Activity: No Restrictions, As Tolerated Follow Up/Referral: With PCP in 10 days Follow up with DC clinic within 7 days Follow up Nephrology in 2 weeks Medications: As per EMR Scheduled Ibuprofen Micronized (Ibuprofen), 1 TAB PO TID, (Reported) Linezolid (Zyvox), 600 MG PO BID Phenazopyridine HCl (Phenazopyridine Hydrochlo), 1 TAB PO TID, (Reported) Pregabalin (Pregabalin), 1 CAP PO BID, (Reported) Tamsulosin Hcl (Tamsulosin Hcl), 1 CAP PO DAILY, (Reported) Topiramate (Topiramate), 1 TAB PO BID, (Reported) Scheduled PRN Oxycodone Hcl (Oxycodone Hcl), 5 MG PO Q6HPRN PRN Discontinued Medications Amoxicillin Trihydrate (Amoxicillin), 1 CAP PO TID, (Reported) Hydrocodone-Acetaminophen (Hydrocodone/Acetaminophen 10-325 mg), 1 TAB PO Q6HP PRN for PAIN SCALE 7 THRU 10, (Reported) Discontinued Reason: Prescription changed Discharge Statement: "Patient was advised to return to the ER or call 911 if any headaches, dizziness, shortness of breath, chest pain, abdominal pain, bleeding, fevers, or worsening of medical condition. Patient was counseled about treatment plan, medications, possible side effects, patientverbalized understanding. All questions were answered to the best of my ability. This discharge took greater then 30 minutes in planning, reviewing documentation, counseling the patient, and discussing with other team members." ASSESSMENT ASSESSMENT Assessment #Acute intractable abdominal renal colic, hemodynamically stable. 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 #Chronic migraine #Chronic lumbar and cervical spondylolisthesis # ruled out. #Reactive thrombocytosis Visit Coding STANDARD RES Billing Provider: LORENZO BRASHER MD Date of Service if different f: Jun 09, 2025 Common Visit Codes: [id number] DISCH DAY >30min SHEBA BETTENCOURT RESIDENT Jun 09, 2025 16:04 LORENZO BRASHER MD Jun 09, 2025 23:39
[2025-06-09] MEDS ORDERED: LINEZOLID 600MG TABLET PO ONE ×4 (19:15→21:00)
[2025-06-09] MEDS ORDERED: OXY5T PO (22:01)
[2025-06-10 01:00] VITALS: BP 96/64; PULSE 93; RESP 16; TEMP 97.8; O2SAT 96
[2025-06-10 05:00] VITALS: BP 110/71; PULSE 101; RESP 16; TEMP 97.9; O2SAT 96
[2025-06-10 08:42] VITALS: BP 113/83; PULSE 81; RESP 17; TEMP 98.4; O2SAT 97
[2025-06-10] MEDS ORDERED: OXY5T PO (10:47)
[2025-06-10 10:55] VITALS: BP 113/83; PULSE 81; RESP 17
[2025-06-10] MEDS ORDERED: LINE1TAB6 PO (12:07)
[2025-06-10] MEDS ORDERED: CEPH250C PO ×2 (13:07→14:54)
[2025-06-10] MEDS ORDERED: DOXY100C79 PO (13:08)
[2025-06-10] MEDS ORDERED: DOXY100C4 PO (14:55)
--- NOTE | 2025-06-10 16:05 | DVHPNRES ---
Progress Note Date Seen: Jun 10, 2025 Resident Creating Document: SHEBA BETTENCOURT Medical Necessity Reason Pt with a Central, PICC or Fol: No Subjective Review of Systems 06/10/2025: Patient was seen and examined by me today. Patient reported feeling much better. Since yesterday we are unable to discharge her, due to need of medication and because of the holiday seasons pharmacies being closed, patient is getting discharged today with home antibiotics. Objective vital signs Vital Sign Date Time Temp Pulse Resp B/P (MAP) Pulse Ox O2 Delivery O2 Flow Rate FiO2 06/10/25 10:55 81 17 113/83 06/10/25 08:42 98.4 97 98.4 06/10/25 08:00 Room Air* 0 21 Total Intake and Output 06/09/25 06/09/25 06/10/25 15:00 23:00 07:00 Intake Total 400 ml 600 ml 845 ml Output Total 750 ml Balance 400 ml 600 ml 95 ml medications Current Medications Medications Dose Ordered Sig/Padmini Route Start Time Stop Time Status Last Admin Dose Admin Topiramate 100 mg Q12HR PO 06/07/25 10:00 06/10/25 10:10 100 MG Piperacillin Sod/ Tazobactam Sod 100 ml @ 25 mls/hr Q8HR IV 06/06/25 23:00 06/10/25 06:03 25 MLS/HR Linezolid 300 ml @ 150 mls/hr Q12HR IV 06/07/25 10:00 06/10/25 10:11 150 MLS/HR Hydromorphone HCl 0.25 mg Q4HPRN PRN IV 06/07/25 12:15 06/10/25 10:23 0.25 MG Lactated Ringer's 1,000 ml @ 100 mls/hr Q10H IV 06/07/25 15:15 06/07/25 18:00 100 MLS/HR Polyethylene Glycol 17 gm DAILYPRN PRN PO 06/08/25 16:30 Docusate Sodium 100 mg DAILYPRN PRN PO 06/08/25 16:45 Examination Patient is Lying down in bed General Appearance: Alert, Oriented X3, Cooperative, No acute distress HEENT: Atraumatic, PERRLA, EOMI, Mucous membrane moist/pink Respiratory: Clear to auscultation, Normal air movement Cardiovascular: Regular rate, Normal S1, Normal S2, No murmurs, no chest wall tenderness Abdominal: tenderness in the left flank, left lower quadrant tenderness Extremities: No clubbing, No cyanosis, No edema, Normal pulses, No tenderness/swelling Skin: No rashes, No breakdown, No significant lesion Neuro: Normal gait, Normal speech, Strength at 5/5 X4 ext, Normal tone, Sensation intact, Cranial nerves 3-12 NL, Reflexes 2+ Psych/Mental Status: Mental status NL, Mood NL laboratory and microbiology Laboratory Tests 06/09/25 05:27 Test 06/09/25 05:27 Range/Units Serum Glucose 97 74-106 mg/dL Microbiology Date/Time Source Procedure Growth Status 06/06/25 22:27 Blood Blood Culture - Preliminary NO GROWTH AFTER 72 HOURS OF INCUBATION. Resulted 06/06/25 15:50 Voided Urine Urine Culture - Final Complete Labs and/or images reviewed: Labs reviewed by me, Image(s) reviewed by me Problem List/Assessment/Plan Problem List/Assessment/Plan Lolis Rodriguez is a 54-year-old female with a history of migraine and lumbar/cervical spondylolisthesis who presents with severe left flank pain for 2 days, rated 10/10, sharp, and radiating to the left lower quadrant. She reports dysuria, urinary frequency, and burning sensation but denies fever, chills, or shortness of breath. She was hospitalized one month ago for similar symptoms and underwent lithotripsy with stent placement; pain persisted and worsened since then. Two weeks ago, she was treated for UTI at [place] and discharged. She is scheduled for laser lithotripsy and stent removal today 06/[address] Reveles. Assessment: #Acute intractable abdominal renal colic, hemodynamically stable. 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 #Chronic migraine #Chronic lumbar and cervical spondylolisthesis # ruled out. #Reactive thrombocytosis Plan: #Continue LR at 100cc/ hour, Continue topiramate, multimodal pain management. #Linezolid(day2) and Zosyn (day3) for MRSA and gram -ve empiric coverage for recent urinary tract instrumentation. close follow up of platelets. #Trend CBC and BMP, iron panel and ferritin w.n.l #Check UDS, Urine culture preliminary negative, blood culture preliminary negative #pain management with IV Dilaudid 0.25 mg q.4 PRN #Docusate 100 mg p.o. daily PRN, MiraLAX 17 g PO daily prn for constipation #Continue care at [facility], likely discharge tomorrow with abx, and follow up with Dr. Reveles and PCP. Goals of care discussed with the patient for more than 33 minutes. Case discussed with the Dr. Brasher. Plan discussed with: Patient, Other (rn) Visit Coding STANDARD RES Billing Provider: LORENZO BRASHER MD Date of Service if different f: Jun 10, 2025 Common Visit Codes: [id number] INP/OBS CARE(HIGH) SHEBA BETTENCOURT RESIDENT Jun 10, 2025 16:05 LORENZO BRASHER MD Jun 10, 2025 19:19
== END 2025-06-10 15:30 | disposition home or self-care (01) | DRG 693 ==
LOC: ER 14:45 → OVERFLOW 19:46 → WEST WING 19:46 → OVERFLOW 22:05 → WEST WING 23:39
PROVIDERS: ADMIT Internal Medicine; ATTEND Internal Medicine
PROC: 0TP98DZ Removal of Intraluminal Device from Ureter, Via Natural or Artificial Opening Endoscopic (ICD-10-PCS; 2025-06-07)
PROC: 0TC78ZZ Extirpation of Matter from Left Ureter, Via Natural or Artificial Opening Endoscopic (ICD-10-PCS; principal; 2025-06-07 16:13)
DX: N20.2 Calculus of kidney with calculus of ureter (principal); N17.0 Acute kidney failure with tubular necrosis; N30.01 Acute cystitis with hematuria; D64.9 Anemia, unspecified; N13.1 Hydronephrosis with ureteral stricture, not elsewhere classified; N13.8 Other obstructive and reflux uropathy; K52.9 Noninfective gastroenteritis and colitis, unspecified; M43.12 Spondylolisthesis, cervical region; E87.6 Hypokalemia; D75.839 Thrombocytosis, unspecified; G43.909 Migraine, unspecified, not intractable, without status migrainosus
CPT/HCPCS: 36415; 71045; 74018; 74176; 76000; 80048; 80053; 81001; 82360; 82607; 82728; 82746; 83540; 83550; 83735; 84443; 84702; 85025; 85610; 85730; 86850; 86900; 86901; 87040; 87086; 96365; G0378; J2003; J2250; J2405; J2543; J2704; J3480